=== PATIENT | female | born 1985 | race Caucasian/White ===

== ENCOUNTER → 2016-08-21 | Outpatient (CLI) | payer BC ==
[~2016-08-21] MED LIST: AMOX875T PO; B-COTAB18 PO; CHOL1000 PO; HYDR-5688 PO; MAGN400T6 PO; OMEG10007 PO; TURM1CAP4 PO; ZINC1TAB PO
== END | disposition home or self-care (01) ==
LOC: C.LAB1850 11:24
PROVIDERS: ATTEND Obstetrics & Gynecology
DX: N91.1 Secondary amenorrhea (principal)

== ENCOUNTER 2016-09-23 17:06 | Emergency (ER) | payer BC ==
[~2016-09-23] VITALS: Ht 175.3 cm; Wt 85.5 kg
[2016-09-23 17:16] VITALS: TEMP 36.7; Ht 175.3 cm; Wt 85.5 kg
[2016-09-23] MEDS ORDERED: RABIES IMMUNE GLOBULIN (HUMAN) 150 INTER.UNIT/ML 2 ML VIAL IM. ONE (17:30)
[2016-09-23] MEDS ORDERED: RABIES VACCINE (IMOVAX) HUMAN DIPL CELL 2.5 INTER.UNIT/ML SYR IM. ONE (17:30)
[2016-09-23 19:08] VITALS: BP 119/80; PULSE 78; O2SAT 99
--- NOTE | 2016-09-23 19:25 | EMERGENCY ROOM VISIT NOTE ---
History First contact with patient: 17:16 Chief Complaint: OTHER COMPLAINT Stated Complaint: BAT IN ROOM WHILE SLEEPING History of Present Illness The patient is a 31 year old female who presents to the Emergency Room for evaluation after the patient and spouse were awakened in the bedroom last night with their dog barking in the hallway leading to the bedroom. The bedroom door was open. They present to the emergency department for further discussion of need for the rabies prophylaxis series. Review of Systems 6 system review was performed and was negative except for pertinent positives and negatives as indicated in history of present illness Past Medical/Surgical History Medical Problems: (1) No significant past medical history (2) No significant past medical history Surgical Problems: (1) No history of previous surgery (2) No history of previous surgery Family History Unremarkable Social History Smoking Status: Never Smoker Alcohol Use: occasionally Marital Status: Housing Status: lives with family Occupation Status: employed Current/Historical Medications Scheduled Cholecalciferol (Vitamin D3), 1,000 UNITS PO DAILY Fish Oil ([place]-3), 1 CAP PO DAILY Physical Exam Vital Signs Date Time Temp Pulse Resp B/P (MAP) Pulse Ox O2 Delivery O2 Flow Rate FiO2 09/23/16 19:08 78 18 119/80 99 09/23/16 17:16 36.7 83 18 121/80 96 Room Air Physical Exam CONSTITUTIONAL: Healthy and well nourished. Alert and oriented X 3 with positive affect. HEENT: Normocephalic, atraumatic. Pupils equal, round and reactive. NECK: Full active range of motion without discomfort. INTEGUMENTARY: No rash or other significant dermatologic conditions noted. NEUROLOGIC: No focal neurologic deficits noted. Medical Decision & Procedures Medications Administered Medications (Trade) Dose Ordered Sig/Jigar Route Start Time Stop Time Status Last Admin Dose Admin Rabies Vaccine Human Diploid Cell (Imovax Rabies) 2.5 interunit ONCE ONCE IM. 09/23/16 17:30 09/23/16 17:31 DC 09/23/16 18:29 2.5 INTERUNIT Rabies Immune Globulin (Imogam Rabies Inj) 1,710 interunit ONCE ONCE IM. 09/23/16 17:30 09/23/16 17:31 DC 09/23/16 18:28 1,710 INTERUNIT ED Course Patient history and physical exam were performed. Nurse's notes were reviewed. Vital signs were reviewed and were normal. Because the patient was awakened with a possibility of a bat in their room, I did explain that CDC guidelines recommend the postexposure prophylaxis series. The patient was in agreement. The patient was administered Imovax and HRIG 20 units per kilogram without any adverse reactions. The patient will return on days 3, 7 and 14 for subsequent immunizations, sooner with any other adverse reactions or concerns. The patient was happy with plan of care, and denied any pain at the time of discharge. Medical Decision Medication Reconcilliation Current Medication List: was personally reviewed by me Blood Pressure Screening Patient's blood pressure: Normal blood pressure Impression Primary Impression: Need for prophylactic vaccination against rabies Departure Information Referrals No Doctor, Assigned (PCP) Patient Instructions My [facility]
[2016-11-16] MEDS ORDERED: HYDR-5688 PO (13:18)
[2016-11-16] MEDS ORDERED: AMOX875T PO (13:21)
== END 2016-09-23 19:10 | disposition home or self-care (01) ==
LOC: C.EDB 17:07 → C.EDD 19:10
DX: Z20.3 Contact with and (suspected) exposure to rabies (principal); Z23 Encounter for immunization

== ENCOUNTER 2016-09-26 19:27 | Emergency (ER) | payer BC ==
[~2016-09-26] VITALS: Ht 175.3 cm; Wt 83.1 kg
[2016-09-26 19:38] VITALS: TEMP 36.8; Ht 175.3 cm; Wt 83.1 kg
[2016-09-26] MEDS ORDERED: RABIES VACCINE (IMOVAX) HUMAN DIPL CELL 2.5 INTER.UNIT/ML SYR IM. ONE (19:45)
--- NOTE | 2016-09-26 19:47 | EMERGENCY ROOM VISIT NOTE ---
ED Visit Note First contact with patient: 19:39 CHIEF COMPLAINT: Need second rabies vaccine HISTORY OF PRESENT ILLNESS: This 31-year-old female presents the ER stating she needs her second rabies vaccine. The patient was seen in the ER initially 3 days ago when there was a bat in their house. The patient denies any known bites but was recommended that they obtain the rabies vaccine series. The patient did not have any problems with her prior vaccine. REVIEW OF SYSTEMS: 6 system review was performed and was negative unless stated otherwise in history of present illness. PMH: The patient is healthy; there is no significant medical or surgical history. SOCIAL HISTORY: Patient lives with her significant other PHYSICAL EXAM: Vital Signs: Were reviewed Reviewed Nurse's notes. GENERAL: 31- year-old white female appears in no acute distress. MENTAL Status: Alert and oriented 3. SKIN: No visible bites noted. EMERGENCY DEPARTMENT COURSE: The patient was evaluated. The patient was given Imovax. The patient was discharged home in stable condition. DISCHARGE INSTRUCTIONS: Return to the ER as previously directed for the remainder of the vaccine series. Current/Historical Medications Scheduled Cholecalciferol (Vitamin D3), 1,000 UNITS PO DAILY Fish Oil ([place]-3), 1 CAP PO DAILY Allergies Coded Allergies: Sulfa Antibiotics (Unverified Adverse Reaction, Intermediate, HIVES, ) Vital Signs Date Time Temp Pulse Resp B/P (MAP) Pulse Ox O2 Delivery O2 Flow Rate FiO2 09/26/16 19:38 36.8 72 16 123/77 96 Room Air Departure Information Referrals No Doctor, Assigned (PCP) Patient Instructions [facility]
[2016-09-26 20:12] VITALS: BP 105/87; PULSE 65; O2SAT 99
[2016-11-16] MEDS ORDERED: HYDR-5688 PO (13:18)
[2016-11-16] MEDS ORDERED: AMOX875T PO (13:21)
== END 2016-09-26 20:12 | disposition home or self-care (01) ==
LOC: C.EDB 19:28 → C.EDD 20:12
DX: Z23 Encounter for immunization (principal); Z20.3 Contact with and (suspected) exposure to rabies

== ENCOUNTER 2016-09-30 12:37 | Emergency (ER) | payer BC ==
[~2016-09-30] VITALS: Ht 175.3 cm; Wt 81.2 kg
[2016-09-30 16:17] VITALS: BP 111/79; PULSE 66; TEMP 36.7; O2SAT 98; Ht 175.3 cm; Wt 81.2 kg
[2016-09-30] MEDS ORDERED: RABIES VACCINE (IMOVAX) HUMAN DIPL CELL 2.5 INTER.UNIT/ML SYR IM. ONE (16:30)
--- NOTE | 2016-09-30 16:32 | EMERGENCY ROOM VISIT NOTE ---
ED Visit Note First contact with patient: 16:24 Chief complaint: Rabies exposure HPI: This 31-year-old white female presents for her next injection of Imovax. This is injection # 3. patient denies any rashes or problems from the last injection. No shortness of breath. Pain is 0/10. Initial exposure was a bat in her bedroom Review of systems: Unchanged from previous exam. Surgical history: Unchanged from previous exam. Medical history: Unchanged from previous exam Current medications: Unchanged from previous exam Allergies: Unchanged from previous exam Social history: Unchanged from previous exam Vitals: Afebrile. Reviewed and filed in patient's chart General: Well-developed, well-nourished, young white female, in no acute distress. She is sitting in a chair. Alert and oriented. Skin:Warm and dry with good turgor. No rashes or lesions. No ecchymosis or erythema. The patient is not diaphoretic. No abrasions. Musculoskeletal: Full motion of the shoulder without discomfort. Impression: Rabies exposure. Plan: Patient was educated regarding today's findings. They were given Imovax 1 ML IM. Patient was monitored for 20 minutes. No adverse changes were noted. Patient was discharged with instructions to follow-up at the next scheduled injection next Sunday. Tylenol as needed for any discomfort. Benadryl as needed for any itch. Return to the ER for any signs of allergic reaction. Current/Historical Medications Scheduled Cholecalciferol (Vitamin D3), 1,000 UNITS PO DAILY Fish Oil ([place]-3), 1 CAP PO DAILY Allergies Coded Allergies: Sulfa Antibiotics (Unverified Adverse Reaction, Intermediate, HIVES, ) Vital Signs Date Time Temp Pulse Resp B/P (MAP) Pulse Ox O2 Delivery O2 Flow Rate FiO2 09/30/16 16:17 36.7 66 18 111/79 98 Room Air Departure Information Impression Primary Impression: Need for prophylactic vaccination against rabies Dispostion Home / Self-Care Forms BENADRYL USE, WORK / SCHOOL INSTRUCTIONS, HOME CARE DOCUMENTATION FORM, MOTRIN USE, TYLENOL USE , IMPORTANT VISIT INFORMATION Patient Instructions My [facility] [address] [facility] Additional Instructions Tylenol and Motrin every 6 hours as needed for mild discomfort Benadryl every 6 hours as needed for mild redness/itching Return to the ED for any other concerns Follow-up in one week for your fourth and final Imovax administration
[2016-11-16] MEDS ORDERED: HYDR-5688 PO (13:18)
[2016-11-16] MEDS ORDERED: AMOX875T PO (13:21)
== END 2016-09-30 16:47 | disposition home or self-care (01) ==
LOC: C.EDB 12:40 → C.EDD 16:47
DX: Z20.3 Contact with and (suspected) exposure to rabies (principal); Z23 Encounter for immunization

== ENCOUNTER 2016-10-07 16:47 | Emergency (ER) | payer BC ==
[~2016-10-07] VITALS: Ht 175.3 cm; Wt 83.7 kg
[2016-10-07 16:48] VITALS: BP 117/78; PULSE 63; TEMP 36.7; O2SAT 97; Ht 175.3 cm; Wt 83.7 kg
[2016-10-07] MEDS ORDERED: RABIES VACCINE (IMOVAX) HUMAN DIPL CELL 2.5 INTER.UNIT/ML SYR IM. ONE (17:00)
--- NOTE | 2016-10-07 17:00 | EMERGENCY ROOM VISIT NOTE ---
ED Visit Note First contact with patient: 16:56 CHIEF COMPLAINT: Rabies prophylaxis HISTORY OF PRESENT ILLNESS: This 31-year-old female patient presents to the emergency department ambulatory for their fourth rabies shot. The patient has not had any complications from the previous injections. They deny any other complaints. REVIEW OF SYSTEMS: A 6 system review of systems was completed with positives and pertinent negatives listed in the HPI. ALLERGIES: Sulfa MEDICATIONS: Unchanged from previous PMH: Unchanged from previous visit. PHYSICAL EXAM: Vital Signs: Reviewed Nurse's notes, vital signs stable. GENERAL : The 31-year-old female, in no acute distress, well-developed, well-nourished. HEAD: Atraumatic, without temporal or scalp tenderness. EYES: PERRLA, EOMI, no discharge or injection. SKIN: Normal. NEUROLOGICAL: Alert and cooperative. Sensory and motor functions grossly intact. EMERGENCY DEPARTMENT COURSE: I examined the patient. The patient was given Imovax 1ml IM. The patient was observed for 20 minutes with no reaction. The patient was discharged home in stable condition. DIAGNOSIS: Rabies prophylaxis DISCHARGE INSTRUCTIONS: Continue vaccination schedule as directed. Return for any complications. Current/Historical Medications Scheduled B-Complex Vitamins (Vitamin B Complex), 1 TAB PO DAILY Cholecalciferol (Vitamin D3), 1,000 INTER.UNIT PO DAILY Fish Oil ([place]-3), 1 CAP PO DAILY Allergies Coded Allergies: Sulfa Antibiotics (Unverified Adverse Reaction, Intermediate, HIVES, ) Vital Signs Date Time Temp Pulse Resp B/P (MAP) Pulse Ox O2 Delivery O2 Flow Rate FiO2 10/07/16 16:48 36.7 63 16 117/78 97 Room Air Medications Administered Medications (Trade) Dose Ordered Sig/Jigar Route Start Time Stop Time Status Last Admin Dose Admin Rabies Vaccine Human Diploid Cell (Imovax Rabies) 2.5 interunit ONCE ONCE IM. 10/07/16 17:00 10/07/16 17:01 DC 10/07/16 17:19 2.5 INTERUNIT Departure Information Impression Primary Impression: Need for post exposure prophylaxis for rabies Dispostion Home / Self-Care Condition GOOD Referrals No Doctor, Assigned (PCP) Patient Instructions My [facility] Additional Instructions Return with any complications
[2016-11-16] MEDS ORDERED: HYDR-5688 PO (13:18)
[2016-11-16] MEDS ORDERED: AMOX875T PO (13:21)
== END 2016-10-07 17:37 | disposition home or self-care (01) ==
LOC: C.EDB 16:48 → C.EDD 17:37
DX: Z23 Encounter for immunization (principal); Z20.3 Contact with and (suspected) exposure to rabies

== ENCOUNTER 2016-11-04 14:15 | Emergency (ER) | payer BC ==
[~2016-11-04] VITALS: Ht 175.3 cm; Wt 83.7 kg
[2016-11-04 14:29] VITALS: TEMP 36.9; Ht 175.3 cm; Wt 83.7 kg
[2016-11-04] MEDS ORDERED: IBUPROFEN 600 MG TAB PO STA (14:58)
[2016-11-04] MEDS ORDERED: AMOXICILLIN/CLAVULANATE TAB 875 MG TAB PO ONE (15:00)
[2016-11-04] MEDS ORDERED: XYLOCAINE 1%/SOD BICARB 20 ML VIAL INFIL ONE (15:00)
[2016-11-04] MEDS ORDERED: TURM1CAP4 PO (15:37)
[2016-11-04] MEDS ORDERED: ZINC1TAB PO (15:37)
[2016-11-04] MEDS ORDERED: MAGN400T6 PO (15:37)
[2016-11-04 16:25] VITALS: BP 123/80; PULSE 71; O2SAT 98
[2016-11-04] MEDS ORDERED: AMOX875T PO (16:30)
--- NOTE | 2016-11-04 16:32 | EMERGENCY ROOM VISIT NOTE ---
History First contact with patient: 14:58 Chief Complaint: FALL Stated Complaint: FELL,SPLIT NOSE History of Present Illness The patient is a 31 year old female who presents to the Emergency Room with complaints of a laceration that she sustained to her nose when she tripped and fell over a garbage can. She did not lose consciousness. She complains of mild pain in her neck. No headache. Her tetanus shot is up-to-date. The bleeding has stopped. Review of Systems 6 system review negative. Please see pertinent positives in the history of present illness section. Past Medical/Surgical History Medical Problems: (1) No significant past medical history (2) No significant past medical history Surgical Problems: (1) No history of previous surgery (2) No history of previous surgery Social History Smoking Status: Never Smoker Alcohol Use: occasionally Marital Status: Housing Status: lives with family Occupation Status: employed Current/Historical Medications Scheduled Amoxicillin & Pot Clavulanate (Augmentin 875-125 mg), 1 TAB PO BID B-Complex Vitamins (Vitamin B Complex), 1 TAB PO DAILY Cholecalciferol (Vitamin D3), 1,000 INTER.UNIT PO DAILY Fish Oil ([place]-3), 1 CAP PO DAILY Magnesium Oxide (Mag-Ox), 400 MG PO DAILY Turmeric (Curcuma Longa) (Turmeric), 500 MG PO DAILY Zinc Gluconate (Zinc), 50 MG PO DAILY Physical Exam Vital Signs Date Time Temp Pulse Resp B/P (MAP) Pulse Ox O2 Delivery O2 Flow Rate FiO2 11/04/16 16:25 71 20 123/80 98 Room Air 11/04/16 14:29 36.9 86 16 108/73 97 Room Air Physical Exam VITALS: Vitals are noted on the nurse's note and reviewed by myself. Vital signs stable. GENERAL: 31-year-old female, in no acute distress, nondiaphoretic, well- developed well-nourished. HEAD: Normocephalic atraumatic. EYES: Pupils equal round and reactive to light and accommodation. Conjunctivae without injection, sclerae without icterus. Extraocular movements intact. NOSE: 1.5 cm laceration noted to the lateral aspect of the right nostril. It is not through and through. The edges gave the part with traction. There is mild bleeding. The nose itself is mildly deformed. Turbinates are inflamed, but without laceration. MOUTH: No lacerations in the oral mucosa NECK: Full range of motion of the neck. Cervical spine is nontender. MUSCULOSKELETAL: No muscle atrophy, erythema, or edema noted. . Strength 5/5 throughout. NEURO: Patient was alert and oriented to person place and time. Normal sensation to touch. No focal neurological deficits. Medical Decision & Procedures ER Provider Diagnostic Interpretation: Patient Name: JANET ART Unit Number: [id number] Dictated: 11/04/161618 Transcribed: 11/04/161618 PA Printed Date/Time: [~ rep prt dt]/[~ rep prt tm] [~ rep ct labl] - [~ rep ct ivnm] [facility] Radiology Department [place] [id number] Dictated: 11/04/161618 Transcribed: 11/04/161618 PAThinkglue Printed Date/Time: [~ rep prt dt]/[~ rep prt tm] [~ rep ct labl] - [~ rep ct ivnm] NASAL BONES MIN 3 VIEWS CLINICAL HISTORY: fell on face ? Nasal bone fx COMPARISON STUDY: None. FINDINGS: Tiny nondisplaced fracture within the distal tip of the nasal bones. This demonstrates minimal inferior angulation. The nasal septum and orbital floors are intact. Mild soft tissue swelling. IMPRESSION: Tiny nondisplaced fracture within the distal tip of the nasal bones. Electronically signed by: Troy Langston M.D. 11/04/2016 4:57 PM Dictated Date/Time: 11/04/2016 4:19 PM The status of this report is Signed. Draft = Not yet reviewed or approved by Radiologist. Signed = Reviewed and approved by Radiologist. <AttendingPhy></AttendingPhy> <FamilyPhy>No Doctor, Assigned</FamilyPhy> < PrimaryPhy>No Doctor, Assigned</PrimaryPhy> <UnitNumber>[id number]</UnitNumber> <VisitNumber>[id number]</VisitNumber> <PatientName>JANET ART</PatientName > <DateOfBirth>1985</DateOfBirth> <Location>[facility]</Location> <ServiceDate> 11/04/16</ServiceDate> <MNE>ESINDI</MNE> <OrderingPhy>AbhijitKaylin Jimmie LOPEZ</ OrderingPhy> <OrderingPhyMNE>f rep ord dr finney</OrderingPhyMNE> <DictatingPhyMNE> f rep dict dr finney</DictatingPhyMNE> <CCListMNE>f rep ct mne</CCListMNE> < AdmittingPhyMNE>f pt admit dr finney</AdmittingPhyMNE> <AttendingPhyMNE>f pt attend dr finney</AttendingPhyMNE> <ConsultingPhyMNE>f pt consult dr finney</ConsultingPhyMNE> <FamilyPhyMNE>f pt fam dr finney</FamilyPhyMNE> <OtherPhyMNE>f pt other dr finney</OtherPhyMNE> < PrimaryPhyMNE>f pt prim care dr finney</PrimaryPhyMNE> <ReferringPhyMNE>f pt referring dr finney</ReferringPhyMNE> Medications Administered Medications (Trade) Dose Ordered Sig/Jigar Route Start Time Stop Time Status Last Admin Dose Admin Ibuprofen (Motrin Tab) 600 mg ONE STAT PO 11/04/16 14:58 11/04/16 15:00 DC 11/04/16 15:13 600 MG Amoxicillin/ Clavulanate Potassium (Augmentin Tab) 875 mg NOW ONCE PO 11/04/16 15:00 11/04/16 15:02 DC 11/04/16 15:14 875 MG Procedure Verbal consent was obtained to perform the procedure. Using sterile technique the wound was cleaned with Betadine. The area was sterilely draped. 3 ml of 1 % buffered lidocaine was used to anesthetize the laceration on the nose. Once the patient was anesthetized, the wound was copiously irrigated under pressure with sterile saline. The wound was explored and there were no deep structures injured such as bone, or significant blood vessels. The laceration was repaired using 6 simple interrupted 6-0 nylon sutures with the wound edges being well approximated. The patient tolerated the procedure well. Hemostasis was achieved. The area was cleaned with sterile saline and dressed with bacitracin ointment and bandage. ED Course The patient was seen and examined She was given ibuprofen 600 mg by mouth and one dose of Augmentin The laceration was repaired. Please see my procedure note Imaging was performed and reviewed The findings were discussed with the patient. She voiced understanding. Discharge instruction's were discussed, and she was discharged in good condition Medical Decision Differential diagnosis: Nasal bone fracture, laceration, wound infection, open fracture This patient is a 31-year-old female that presents emergency department with a laceration to the lateral aspect of her right nostril after sustaining a fall. The fall was mechanical. No loss of consciousness. She was complaining of mild neck pain, however she had full range of motion with no tenderness over her neck. I did not find imaging necessary of her neck. She did have slight deformity and swelling over the nose. Imaging was performed. It appears that she has a nasal bone fracture. The laceration itself was repaired. She was given a referral to an ENT doctor for the fracture. She was put on a prophylactic course of Augmentin to prevent infection. She will follow up with the plastic surgeon if desired for revision of a scar if necessary. This chart was completed in part utilizing [employer] Speech Voice Recognition software. Attempts were made to minimize the grammatical errors, random word insertions, pronoun errors and incomplete sentences. Any formal questions or concerns about the content, text or information contained within the body of this dictation should be directly addressed to the provider for clarification. Blood Pressure Screening Patient's blood pressure: Normal blood pressure Impression Primary Impression: Laceration Additional Impression: Nasal bone fracture Departure Information Dispostion Home / Self-Care Condition GOOD Prescriptions Amoxicillin & Pot Clavulanate (Augmentin 875-125 mg) 1 Tab Tab 1 TAB PO BID for 5 Days, #10 TAB Prov: Kaylin Lacey PA-C 11/04/16 Referrals No Doctor, Assigned (PCP) Alissa Fletcher M.D. Peterson, Emily A., MD Forms HOME CARE DOCUMENTATION FORM, IMPORTANT VISIT INFORMATION Patient Instructions ED Laceration Nose W Fx Ch, My [facility] Additional Instructions Keep wound clean. It is okay to gently wash the area with soapy water. Do not submerse it in water for long periods of time such as swimming, going in hot tubs or taking baths until the sutures come out. Do not allow any crusting or dried blood to accumulate on sutures. If this occurs, use a 1:1 solution of hydrogen peroxide/water on a Q-tip to clean the wound. Use an antibiotic ointment for 2 days, then let wound dry. Suture removal in 6 days. Return sooner for any signs of infection (increasing redness, swelling, drainage). Please follow-up with Dr. Fletcher, the ENT doctor, for the nasal bone fracture. Please call Sunday for a follow-up appointment If desired, you may also follow up with a plastic surgeon. Ice for swelling and pain. Ibuprofen 600 mg and Tylenol 1000 mg every 6 hrs for pain. Problem Qualifiers
[2016-11-04] MEDS ORDERED: B-COTAB18 PO (16:45)
--- NOTE | 2016-11-04 16:58 | DIAGNOSTIC IMAGING REPORT ---
NASAL BONES MIN 3 VIEWS CLINICAL HISTORY: fell on face ? Nasal bone fx COMPARISON STUDY: None. FINDINGS: Tiny nondisplaced fracture within the distal tip of the nasal bones. This demonstrates minimal inferior angulation. The nasal septum and orbital floors are intact. Mild soft tissue swelling. IMPRESSION: Tiny nondisplaced fracture within the distal tip of the nasal bones. Electronically signed by: Troy Langston M.D. 11/04/2016 4:57 PM Dictated Date/Time: 11/04/2016 4:19 PM
[2016-11-04] MEDS ORDERED: CHOL1000 PO (17:31)
[2016-11-04] MEDS ORDERED: OMEG10007 PO (17:31)
[2016-11-16] MEDS ORDERED: HYDR-5688 PO (13:18)
[2016-11-16] MEDS ORDERED: AMOX875T PO (13:21)
== END 2016-11-04 16:50 | disposition home or self-care (01) ==
LOC: C.EDB 14:15 → C.EDC 16:50
DX: S01.21XA Laceration without foreign body of nose, initial encounter (principal); S02.2XXA Fracture of nasal bones, initial encounter for closed fracture; W01.0XXA Fall on same level from slipping, tripping and stumbling without subsequent striking against object, initial encounter; Z79.899 Other long term (current) drug therapy

== ENCOUNTER → 2016-11-16 | Day surgery (SDC) | payer BC ==
--- NOTE | 2016-11-15 12:17 | History and Physical: Surg Cnt ---
History & Physical Date Nov 15, 2016. Chief Complaint nasal obstruction History of Present Illness The patient is a 31 year old female with complaints of nasal and septal fracture last week, obstructed right side > left, xray showed nasal fracture Past Medical/Surgical History Medical Problems: (1) No significant past medical history (2) No significant past medical history Surgical Problems: (1) No history of previous surgery (2) No history of previous surgery Additional History Hepatic Disease: No Endocrine Disorder: No Kidney Disease: No Hypertension: No Heart Disease: No Bleeding Tendencies: No Infectious Diseases: No Allergies Coded Allergies: Sulfa Antibiotics (Unverified Adverse Reaction, Intermediate, HIVES, ) Home Medications Scheduled B-Complex Vitamins (Vitamin B Complex), 1 TAB PO DAILY Cholecalciferol (Vitamin D3), 1,000 INTER.UNIT PO DAILY Fish Oil ([place]-3), 1 CAP PO DAILY Magnesium Oxide (Mag-Ox), 400 MG PO DAILY Turmeric (Curcuma Longa) (Turmeric), 500 MG PO DAILY Zinc Gluconate (Zinc), 50 MG PO DAILY Physical Examination Skin: warm/dry, no rash Eyes: normal inspection, EOMI, sclerae normal ENT: normal ENT inspection, pharynx normal Head: normocephalic, atraumatic Neck: supple, no adenopathy, trachea midline Respiratory/Chest: lungs clear, normal breath sounds, no respiratory distress Cardiovascular: regular rate, rhythm, no edema, no murmur Abdomen / GI: normal bowel sounds, non tender Back: normal inspection Extremities: normal inspection, normal range of motion Neurologic/Psych: no motor/sensory deficits, alert, normal reflexes, oriented x 3 Diagnosis nasal and septal fracture Plan of Treatment septoplasty, closed reduction nose
[2016-11-15 13:26] VITALS: Ht 175.3 cm; Wt 79.5 kg
[~2016-11-16] VITALS: Ht 175.3 cm; Wt 79.5 kg
[~2016-11-16] MED LIST changes: +ATROPINE SULFATE 0.1 MG/ML 5ML SYR IV PRN; +BACITRACIN OINT 15 GM TUBE ONE; +CEFAZOLIN 1000MG/55 ML D5W IV SCH; +DEXAMETHASONE SOD INJ 4 MG/ML VIAL ONE; +EpINEphrine HCL INJ 1 MG/ML 5ML SYRINGE ONE; +FENTANYL CITRATE INJ 50 MCG/1 ML 2 ML VIAL IV PRN; +FENTANYL CITRATE INJ 50 MCG/1 ML 2 ML VIAL ONE; +GELATIN SPONGE 12-7MM ONE; +KETOROLAC TROMETHAMINE 30 MG/ML VIAL IV. PRN; +LABETALOL HCL IV 5 MG/ML 20ML IV PRN; +LACTATED RINGER'S 1000ML 1,000 ML IV SCH; +LIDO 2%/EPINEPHRINE 1:100000 20 ML VIAL INFIL ONE; +LIDOCAINE 4% MPF SOAK 5 ML = 1 DOSE TOP ONE; +LIDOCAINE HCL 2% 2 ML VIAL (20MG/ML) ONE; +MIDAZOLAM HCL 1 MG/ML 2ML VIAL ONE; +ONDANSETRON INJ 2 MG/ML 2 ML VIAL IV PRN; +ONDANSETRON INJ 2 MG/ML 2 ML VIAL ONE; +OXYCODONE/ACETAMINOPHEN 5-325 TAB PO PRN; +PROMETHAZINE HCL INJ 12.5 MG in SODIUM CHLORIDE 0.9% 50ML 50 ML IV PRN; +PROPOFOL IV EMULSION 10 MG/ML 20 ML VIAL IV ONE; +SODIUM CHLORIDE 0.9% 1000ML 1,000 ML IV SCH
--- NOTE | 2016-11-16 12:13 | History & Physical Bridge Note ---
H&P Re-Evaluation Bridge Note: I have examined the patient, reviewed the History & Physical and in the interval since the performance of the History & Physical I have noted the following changes of clinical significance: No changes noted
--- NOTE | 2016-11-16 13:19 | Discharge Instructions-SurgCtr ---
Discharge Instructions Date of Service Nov 16, 2016. Visit Reason for Visit: Nasal & Septal Fracture Discharge Discharge Diagnosis / Problem: same plus septal hematoma Discharge Goals Goal(s): Improve function Activity Recommendations Activity Limitations: resume your previous activity Anesthesia . Post Anesthesia Instructions: If you have had General Anesthesia or IV Sedation: * Do not drive today. * Resume driving when surgeon permits. * Do not make important decisions or sign legal documents today. * Call surgeon for: 1. Temperature elevations greater than 101 degrees F. 2. Uncontrollable pain. 3. Excessive bleeding. 4. Persistent nausea and vomiting. 5. Medication intolerance (nausea, vomiting or rash). * For nausea and vomiting use only clear liquids such as: tea, soda, bouillon until nausea subsides, then gradually increase diet as tolerated. * If you have any concerns or questions, call your surgeon's office. If physician is unavailable and it is an emergency, call 911 or go to the nearest emergency room. . Instructions / Follow-Up Instructions / Follow-Up ACTIVITY RECOMMENDATIONS: * Being up and around is good, but no strenuous activity, heavy lifting or physical exertion for one week. * Keep your head elevated 30 degrees when lying down or sleeping. * Do not blow your nose for 48 hours, sniff back instead. * Avoid hot showers. OVER THE COUNTER MEDICATIONS: * You may use Tylenol * Avoid aspirin or aspirin containing products, e.g. as they may increase bleeding. SPECIAL CARE INSTRUCTIONS: * Expect to have bloody drainage from your nose and/or down your throat for one to three days. Change drip pad as needed. * Begin irrigating your nose with saline solution today, at least six to ten times per day and sniff back to help remove old clots or crust. * You may experience nasal and facial congestion, pain and pressure, this is normal. * Please call with any significant and/or progressive pain, redness, swelling around the eyes, visual changes, fever of 101.5 degrees F, active bleeding or any problems or concerns. * If active bleeding occurs, spray the nose three times at one minute intervals with Afrin spray and call or cell phone: . If unable to reach the doctor, go to the nearest Emergency Department. Special Diet: * Avoid extremely hot fluids. FOLLOW UP VISIT: Follow-up Visit with Dr. Fletcher If not already scheduled, please call to schedule. Diet Recommendations Home Diet: no limitations Procedures Procedures Performed: Closed Reduction Nasal Fracture, Septoplasty Pending Studies Studies pending at discharge: no Medical Emergencies . Who to Call and When: Medical Emergencies: If at any time you feel your situation is an emergency, please call 911 immediately. . Non-Emergent Contact Non-Emergency issues call your: Primary Care Provider . . "Provider Documentation" section prepared by Alissa Fletcher. . [place] Drug Monitoring Program Search Results: no issues identified
--- NOTE | 2016-11-16 13:25 | [facility] Operative Report ---
Operative Report Operative Date Nov 16, 2016. Pre-Operative Diagnosis Septal Deviation, Nasal Fracture Post-Operative Diagnosis same Procedure(s) Performed Closed Reduction Nasal Fracture, Septoplasty Surgeon Dr. Hansa Fletcher Photography Editor Surgeon(s) 0 Estimated Blood Loss 20cc Findings Septal hematoma Specimens none Anesthesia Gen. Complication(s) None Disposition Recovery Room / PACU Indications 31-year-old lady who tripped and fell on her nose with obstruction and deformity found to have septal hematoma at surgery Description of Procedure She was brought to the operating room and placed in the supine position. Gen. anesthesia was induced using LMA. Nose was decongested using cottonoids with a solution of 4 mL of 4% Xylocaine mixed with 1 mL of epinephrine. Injection of 2 % Xylocaine 1-100,000 strength epinephrine was also used. The right nasal bone was pushed back to the midline in the left nasal bone was elevated into position with the [place] elevator. The left hemitransfixion incision was made and mucoperichondrium was elevated off the left side of the septum a septal hematoma was encountered and evacuated. The cartilage was fractured and dislocated from the vomer maxillary crest inferiorly and the perpendicular plate of the ethmoid posteriorly. Bilateral posterior tunnels were made to isolate the deviated portion the perpendicular plate of the ethmoid which was removed using the Hai-Theresa rongeurs. The cartilage was inferiorly from the vomer maxillary crest removing a small pieces to allow the septum to reset on the crest. The septum was still bulging on the right side for the mucoperichondrium was elevated off the right side where another septal hematoma was encountered and evacuated. The septum was closed using a continuous mattress suture for 40 plain gut. Anterior packing of Gelfoam was placed. A Grygla splint was placed on the dorsum of the nose. She tolerated the procedure well was taken to recovery area in satisfactory condition. I attest to the content of the Intraoperative Record and any orders documented therein. Any exceptions are noted below.
[2016-11-16 13:52] VITALS: TEMP 36.8
[2016-11-16 14:08] VITALS: BP 112/73; PULSE 68; O2SAT 98
--- NOTE | 2016-11-16 14:11 | Anesthesia Progress Nt - [facility] ---
Anesthesia Post Op Note Date & Time Nov 16, 2016 at 14:11 Vital Signs Pain Intensity: 0 Vital Signs Past 12 Hours Date Time Temp Pulse Resp B/P (MAP) Pulse Ox O2 Delivery O2 Flow Rate FiO2 11/16/16 14:08 68 16 112/73 (86) 98 Room Air 11/16/16 13:52 36.8 61 18 106/71 (83) 97 Room Air 11/16/16 13:31 36.6 11/16/16 13:28 72 20 97 11/16/16 13:28 73 20 11/16/16 13:26 101/67 (77) 11/16/16 13:23 61 12 11/16/16 13:23 60 12 98 11/16/16 13:21 107/65 (72) 11/16/16 13:18 69 23 98 11/16/16 13:18 70 23 11/16/16 13:15 101/69 (80) 11/16/16 13:12 36.7 62 16 101/69 99 Diffusion Mask 5 11/16/16 10:07 36.7 76 22 106/76 (86) 100 Room Air Notes Mental Status: alert / awake / arousable, participated in evaluation Pt Amnestic to Procedure: Yes Nausea / Vomiting: adequately controlled Pain: adequately controlled Airway Patency, RR, SpO2: stable & adequate BP & HR: stable & adequate Hydration State: stable & adequate Anesthetic Complications: no major complications apparent
== END | disposition home or self-care (01) ==
LOC: X.SURG 09:31
PROVIDERS: ATTEND Otolaryngology
DX: S02.2XXA Fracture of nasal bones, initial encounter for closed fracture (principal); J34.2 Deviated nasal septum; X58.XXXA Exposure to other specified factors, initial encounter

== ENCOUNTER → 2017-01-19 | Outpatient (CLI) | payer BC ==
[~2017-01-19] MED LIST changes: -AMOX875T PO; -ATROPINE SULFATE 0.1 MG/ML 5ML SYR IV PRN; -BACITRACIN OINT 15 GM TUBE ONE; -CEFAZOLIN 1000MG/55 ML D5W IV SCH; -DEXAMETHASONE SOD INJ 4 MG/ML VIAL ONE; -EpINEphrine HCL INJ 1 MG/ML 5ML SYRINGE ONE; -FENTANYL CITRATE INJ 50 MCG/1 ML 2 ML VIAL IV PRN; -FENTANYL CITRATE INJ 50 MCG/1 ML 2 ML VIAL ONE; -GELATIN SPONGE 12-7MM ONE; -KETOROLAC TROMETHAMINE 30 MG/ML VIAL IV. PRN; -LABETALOL HCL IV 5 MG/ML 20ML IV PRN; -LACTATED RINGER'S 1000ML 1,000 ML IV SCH; -LIDO 2%/EPINEPHRINE 1:100000 20 ML VIAL INFIL ONE; -LIDOCAINE 4% MPF SOAK 5 ML = 1 DOSE TOP ONE; -LIDOCAINE HCL 2% 2 ML VIAL (20MG/ML) ONE; -MIDAZOLAM HCL 1 MG/ML 2ML VIAL ONE; -ONDANSETRON INJ 2 MG/ML 2 ML VIAL IV PRN; -ONDANSETRON INJ 2 MG/ML 2 ML VIAL ONE; -OXYCODONE/ACETAMINOPHEN 5-325 TAB PO PRN; -PROMETHAZINE HCL INJ 12.5 MG in SODIUM CHLORIDE 0.9% 50ML 50 ML IV PRN; -PROPOFOL IV EMULSION 10 MG/ML 20 ML VIAL IV ONE; -SODIUM CHLORIDE 0.9% 1000ML 1,000 ML IV SCH
== END | disposition home or self-care (01) ==
LOC: C.PAPS 11:53
PROVIDERS: ATTEND Obstetrics & Gynecology
DX: Z01.419 Encounter for gynecological examination (general) (routine) without abnormal findings (principal)

== ENCOUNTER 2019-06-17 07:24 | Inpatient (IN) ==
[2019-06-17] MEDS ORDERED: OXYTOCIN 30 UNITS/500 ML BAG IV PRN ×3 (08:10→20:47)
--- NOTE | 2019-06-17 08:15 | History & Physical Report ---
Date of Service June 17, 2019 Assessment & Plan (1) Supervision of normal intrauterine in primigravida: (2) Active labor at term: (3) Need for rubella vaccination: admit, iv, labs. mmr pp. discussed her plan and that are some things we cannot honor. fhts categ 1 History of Present Illness Chief Complaint: leaking fluid since 0630 today and stronger ctx. Primary Care Provider: Mikey Bautista MD 34yo at 40+wks shawn presents to L&D with above cc. She was here overnight and sent home after no active labor and was 2cm. She recalle with rom clear fluid at 0630 and stronger ctx and advised to return. Some bleeding on and off since exams. +FM. Wants to hypnobirth, had a plan that I did not see until overnight and aware we can not honor some of her wishes. PNC c/b 1. need for mmr pp 2. h/o LLP, resolved at 32wk us PNL rh pos, r equiv, gbs neg OBH: g1 GYNH: nl paps, no stds. All Active Problems (Updated 06/17/19 @ 08:14 by Lexii Ring MD, FACOG) Active labor at term Need for rubella vaccination Supervision of normal intrauterine in primigravida Allergies Allergy/AdvReac Type Severity Reaction Status Date / Time amoxicillin [From Augmentin] Allergy Hives Verified 06/12/19 08:07 ciprofloxacin [From Cipro] Allergy hives Verified 06/12/19 08:07 clavulanic acid Allergy Hives Verified 06/12/19 08:07 [From Augmentin] Sulfa (Sulfonamide AdvReac Intermediate HIVES Verified 06/12/19 08:07 Antibiotics) Home Medications Home Medications Medication Instructions Recorded Confirmed Type breast pump #1 ea 05/20/19 06/17/19 Rx ferrous sulfate 325 mg PO DAILY 06/17/19 06/17/19 History vit no.[id number] 1 tab PO DAILY 06/17/19 06/17/19 History [ Vitamin] Patient History Medical History (Updated 06/17/19 @ 08:14 by Lexii Ring MD, FACOG) Hypertrophy of nasal turbinates (Inactive) Nasal bone fracture (Resolved) Varicella vaccine Yeast infection Surgical History (Updated 04/04/19 @ 18:34 by Lexii Ring MD, FACOG) S/P ACL repair S/P nasal septoplasty S/P tooth extraction Social History (Updated 11/08/18 @ 13:59 by Krystina Olson) Preferred Language: Vietnamese Communication Ability: Effective Visual Impairment: No Limitations Hearing Ability: Normal Assembling Inspector Required: No Beliefs That Will Affect Care: None marital status: marital status details: Izaiah Causey (33) [phone] Current Living Situation: Spouse Current Living Situation Comment: nuha current occupational status: employed 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 [employer] Other Information That Helps Us Care for You: No Feels Safe at Home: Yes Safety Concerns: Feels Safe At This Time Smoking Status: Never smoker Second Hand Exposure: No ; Hx Alcohol Use: No Hx Substance Use: No Dental Care, Regularly: Yes Physical Activity Frequency: 3-4 Times per Week Review of Systems no fever no change in stools no dysuria and no abnormal vaginal bleeding Physical Exam Constitutional: WD/WN, vitals as above Respiratory: normal respiratory effort, lungs clear to auscultation Cardiovascular: Rate/Rhythm: regular rate and regular rhythm Gastrointestinal (Abdomen): Percussion/Palpation: abdomen soft (gravid); abdomen nontender Musculoskeletal: no edema Neurologic: grossly normal Psychiatric: A+Ox3, euthymic affect Genitourinary: Manual OB Exam: + cervical dilation 5 cm, + cervical effacement 100%, + station -2 and + amniotic fluid (SSE, no pool, ) clear, nitrazine positive and ferning present OB Exam Monitor Tracing: + external FHT monitor used (140 mod variability), + external uterine monitor used (q3), + category I and + normal FHT variability Results & Data Vital Signs (Past 12 Hours) Vital Signs Temp Resp 06/17/19 07:42 98.2 F 20 Coding Level of Care Code None Diagnoses Supervision of normal intrauterine in primigravida Z34.00 Active labor at term Need for rubella vaccination Z23
[2019-06-17 08:30] LABS: Hematocrit (blood only) 34.9 % (37-47); Mean Corpuscular Hemoglobin 29.5 pg (25-34); Mean Corpuscular Volume 85.7 fL (80-100); Platelet Count 172 K/uL (130-400); RDW Coefficient of Variation 13.9 % (11.5-14.5); RDW Standard Deviation 43.1 fL (36.4-46.3); Red Blood Count 4.07 M/uL (4.2-5.4); White Blood Count 26.32 K/uL (4.8-10.8)
[2019-06-17 08:51] LABS: Mean Corpuscular Hgb Conc 34.4 g/dL (32-36)
[2019-06-17] MEDS: LACTATED RINGER'S 1,000 ML IV PRN ×3 (09:04→17:50)
[2019-06-17] MEDS ORDERED: ePHEDrine sulfate 50 MG/ML AMP ONE (09:09)
[2019-06-17] MEDS ORDERED: fentaNYL 2MCG/ML ROPIV 1.25MG/ML 100 ML BAG EPI ONE ×2 (09:09→17:41)
[2019-06-17] MEDS ORDERED: BUPIVACAINE 0.25% 30 ML VIAL ONE (09:09)
[2019-06-17] MEDS ORDERED: fentaNYL citrate 100 MCG/2 ML VIAL ONE (09:09)
--- NOTE | 2019-06-17 09:14 | Anesthesiology Consultation ---
Date of Service June 17, 2019 Assessment & Plan Chart Review Chart Review: Acceptable Risk for Labor Epidural Consults Requested none ASA ASA2 Proposed Anesthesia Anesthesia Type: Labor Epidural Risk / Benefits Reviewed With: PT / POA / Parent / Guardian, Accepts Plan and Informed Consent Obtained History Height/Weight Height: 5 ft 9 in Weight: 104.326 kg Allergies Allergy/AdvReac Type Severity Reaction Status Date / Time amoxicillin [From Augmentin] Allergy Hives Verified 06/12/19 08:07 ciprofloxacin [From Cipro] Allergy hives Verified 06/12/19 08:07 clavulanic acid Allergy Hives Verified 06/12/19 08:07 [From Augmentin] Sulfa (Sulfonamide AdvReac Intermediate HIVES Verified 06/12/19 08:07 Antibiotics) Medications Home Medications Medication Instructions Recorded Confirmed Last Taken breast pump #1 ea 05/20/19 06/17/19 Unknown ferrous sulfate 325 mg PO DAILY 06/17/19 06/17/19 Unknown vit no.[id number] 1 tab PO DAILY 06/17/19 06/17/19 06/16/19 08:00 [ Vitamin] Active Medications Generic Name Dose Route Start Last Admin Trade Name Freq PRN Reason Stop Dose Admin Lactated Ringer's 1,000 mls @ 125 mls/hr 06/17/19 08:10 06/17/19 09:04 Lr IV 06/19/19 08:09 999 mls/hr .Q8H PRN Administration L&D Protocol Protocol NPO Date Last Intake of Fluids: 06/17/19 Time Last Intake of Fluids: 08:00 Date Last Intake of Solids: 06/16/19 Time Last Intake of Solids: 20:00 Past Medical History Medical History Hypertrophy of nasal turbinates (Inactive) Nasal bone fracture (Resolved) Varicella vaccine Yeast infection Exercise / Class Metabolic Activity II 4-5 Yardwork/Stairs/Walk up hill Past Family History Family History Brother Testicular cancer Family/Other Ovarian cancer Grandmother No problems noted. Uncle Myocardial infarction Hypertension Hypercholesteremia Grandfather (Paternal) Hypertension Father Hypercholesteremia Mother Fibroid Denies family history of Prostate cancer Breast cancer Colorectal cancer Past Surgical History Surgical History S/P ACL repair S/P nasal septoplasty S/P tooth extraction Past Anesthesia History No Hx of Anesthesia Complications and No Family Hx of Anesthesia Complications History of PONV No Hx of PONV and No Hx of Motion Sickness Social History Smoking Status: Never smoker Hx Alcohol Use: No Hx Substance Use: No substance use type: does not use Physical Exam Vital Signs Last Vital Signs Temp 36.8 C 06/17/19 07:42 Resp 20 06/17/19 07:42 ENMT Mouth: + small oral opening; no TMJ abnormality Thyromental Distance: > or= 3.5 Finger Breadths Mallampati Class: III Neck normal visual inspection and trachea midline; neck extension not limited Respiratory normal respiratory effort Auscultation: lungs clear to auscultation bilaterally Cardiovascular Rate/Rhythm: regular rate and regular rhythm Heart Sounds: no murmur Musculoskeletal Spine: normal cervical ROM Extremities: full ROM of extremities Neurologic moves all extremities Psychiatric Orientation: alert and oriented x 3 Testing Laboratory Results 06/17/19 08:15
[2019-06-17] MEDS ORDERED: ONDANSETRON INJ 2 MG/ML 2 ML VIAL IV PRN (09:16)
[2019-06-17] MEDS ORDERED: ePHEDrine sulfate 50 MG/ML AMP IV PRN (09:16)
[2019-06-17] MEDS ORDERED: NALOXONE HCL 1 MG in SODIUM CHLORIDE 0.9% 1000ML 1,000 ML IV PRN (09:16)
[2019-06-17] MEDS ORDERED: DiphenhydrAMINE HCL 50 MG/ML VIAL IV PRN (09:16)
[2019-06-17] MEDS ORDERED: METOCLOPRAMIDE HCL 20 MG in SODIUM CHLORIDE 0.9% 50 ML IV PRN (09:16)
[2019-06-17] MEDS ORDERED: NALBUPHINE HCL INJ 10 MG/ML AMP IV PRN (09:16)
[2019-06-17] MEDS ORDERED: fentaNYL 2MCG/ML ROPIV 1.25MG/ML 100 ML BAG EPI PRN (09:16)
[2019-06-17] MEDS ORDERED: PROMETHAZINE HCL 25 MG in SODIUM CHLORIDE 0.9% 50 ML IV PRN (09:16)
[2019-06-17] MEDS ORDERED: NALOXONE HCL 0.4 MG/1 ML VIAL/CARP IV PRN (09:16)
--- NOTE | 2019-06-17 11:39 | Labor Progress Brief Note ---
Date of Service June 17, 2019 Cx now 7-8 100%. Epidural cat 1 Results & Data Vital Signs (Past 12 Hours) Vital Signs Temp Pulse Resp BP Pulse Ox 06/17/19 11:34 71 96 06/17/19 11:29 76 97 06/17/19 11:24 70 97 06/17/19 11:22 68 110/67 06/17/19 11:19 71 96 06/17/19 11:14 71 95 06/17/19 11:09 73 94 06/17/19 11:05 73 112/61 06/17/19 11:04 81 97 06/17/19 11:00 68 105/58 L 06/17/19 10:59 80 97 06/17/19 10:55 71 102/56 L 06/17/19 10:54 71 96 06/17/19 10:50 73 104/58 L 06/17/19 10:49 68 95 06/17/19 10:45 72 105/58 L 06/17/19 10:44 71 96 06/17/19 10:41 72 92 06/17/19 10:40 68 105/56 L 05 10:39 72 95 06/17/19 10:36 71 105/57 L 05 10:34 69 95 05 10:31 70 103/57 L 05 10:29 72 95 05 10:25 71 104/57 L 05 10:24 73 95 0520 10:20 71 103/58 L 05 10:19 75 95 05 10:16 20 06/17/19 10:15 66 103/56 L 0520 10:14 73 96 05 10:10 72 100/56 L 0520 10:09 72 96 05 10:07 69 103/55 L 05 10:04 71 95 05 10:01 20 06/17/19 10:00 70 101/55 L 0520 09:59 72 96 0520 09:56 70 101/56 L 0520 09:54 72 96 05 09:51 71 104/56 L 94 06/17/19 09:49 70 96 06/17/19 09:45 98.2 F 76 20 107/56 L 06/17/19 09:44 73 97 06/17/19 09:39 78 110/61 98 06/17/19 09:37 83 112/60 06/17/19 09:35 77 114/61 06/17/19 09:34 75 128/60 93 06/17/19 09:31 79 130/76 06/17/19 09:29 94 H 135/74 97 06/17/19 09:24 98 H 133/73 100 06/17/19 07:42 98.2 F 20 Coding Level of Care Code None
[2019-06-17] MEDS ORDERED: LACTATED RINGER'S 1,000 ML IV SCH (15:45)
--- NOTE | 2019-06-17 15:47 | Labor Progress Brief Note ---
Date of Service June 17, 2019 CX have speaced at full dilatation. Start pitocin 7-8 lbs Results & Data Vital Signs (Past 12 Hours) Vital Signs Temp Pulse Resp BP Pulse Ox 06/17/19 15:44 82 100 05/0520 15:39 85 100 05/0520 15:37 80 107/65 05/0520 15:34 79 100 05/0520 15:29 101 H 94 05/0520 15:24 74 100 05/0520 15:22 86 110/63 05/0520 15:19 103 H 95 0505 15:14 81 100 05/05 15:09 95 H 100 05/05 15:07 73 111/64 05/05 15:04 74 100 05/05 14:59 78 100 05/0520 14:54 78 100 0505 14:52 76 108/60 05/0520 14:49 85 100 05/0520 14:44 83 100 05/0520 14:39 74 100 05/0520 14:37 65 110/63 05/0520 14:34 70 100 05/0520 14:29 79 100 05/05/20 14:24 72 105/65 100 05/05/20 14:19 71 100 05/0520 14:16 20 0505 14:14 69 100 05/05/20 14:09 74 109/61 100 05/05/20 14:04 78 100 05/05/20 13:59 85 100 05/05/20 13:54 74 100 05/0520 13:52 73 101/58 L 0505 13:49 78 100 05/0520 13:44 81 99 05/05/20 13:39 80 100 05/05/20 13:37 90 92/53 L 05/05/20 13:34 81 99 05/05/20 13:29 78 99 05/05/20 13:24 82 100 05/0520 13:22 74 97/52 L 05/05/20 13:19 73 100 05/05/20 13:16 20 05/0520 13:14 74 100 05/0520 13:09 73 94/53 L 100 05/05 13:04 73 100 05/05/20 13:01 20 05/05/20 12:59 80 91/54 L 100 05/05/20 12:54 78 98 05/05/20 12:53 68 84/50 L 05/05/20 12:49 73 98 05/05/20 12:46 20 05/05/20 12:44 71 97 05/05/20 12:39 74 99 05/05/20 12:38 71 89/52 L 05/05/20 12:34 71 99 05/05/20 12:29 89 99 05/05/20 12:24 69 97 05/05/20 12:23 64 106/64 05/05/20 12:19 67 97 05/05/20 12:16 20 05/05/20 12:14 81 98 05/05/20 12:09 72 111/65 96 05/05/20 12:04 69 96 05/05/20 11:59 67 96 05/05/20 11:54 69 96 05/05/20 11:52 68 110/66 05/05/20 11:50 98.2 F 20 05/05/20 11:49 67 96 05/05/20 11:46 20 05/05/20 11:44 73 97 05/05/20 11:39 71 97 05/05/20 11:37 72 105/63 05/05/20 11:34 71 96 05/05/20 11:29 76 97 05/05/20 11:24 70 97 05/05/20 11:22 68 110/67 05/05/20 11:19 71 96 05/05/20 11:16 20 05/05/20 11:14 71 95 05/05/20 11:09 73 94 05/05/20 11:05 73 112/61 05/05/20 11:04 81 97 05/05/20 11:00 68 105/58 L 05/05/20 10:59 80 97 05/05/20 10:55 71 102/56 L 05/05/20 10:54 71 96 05/05/20 10:50 73 104/58 L 05/05/20 10:49 68 95 05/05/20 10:46 20 05/05/20 10:45 72 105/58 L 05/05/20 10:44 71 96 05/05/20 10:41 72 92 05/05/20 10:40 68 105/56 L 05/05/20 10:39 72 95 05/05/20 10:36 71 105/57 L 05/05/20 10:34 69 95 05/05/20 10:31 70 20 103/57 L 05/05/20 10:29 72 95 05/05/20 10:25 71 104/57 L 05/05/20 10:24 73 95 05/05/20 10:20 71 103/58 L 05/05/20 10:19 75 95 05/05/20 10:16 20 05/05/20 10:15 66 103/56 L 05/05/20 10:14 73 96 05/05/20 10:10 72 100/56 L 05/05/20 10:09 72 96 05/05/20 10:07 69 103/55 L 05/05/20 10:04 71 95 05/05/20 10:01 20 05/05/20 10:00 70 101/55 L 05/05/20 09:59 72 96 05/05/20 09:56 70 101/56 L 05/05/20 09:54 72 96 05/05/20 09:51 71 104/56 L 94 05/05/20 09:49 70 96 05/05/20 09:45 98.2 F 76 20 107/56 L 05/05/20 09:44 73 97 05/05/20 09:39 78 110/61 98 05/05/20 09:37 83 112/60 05/05/20 09:35 77 114/61 05/05/20 09:34 75 128/60 93 05/05/20 09:31 79 130/76 05/05/20 09:29 94 H 135/74 97 05/05/20 09:24 98 H 133/73 100 05/05/20 07:42 98.2 F 20 Coding Level of Care Code None
[2019-06-17] MEDS ORDERED: Nursing to Pharmacy Communication ONE (18:11)
--- NOTE | 2019-06-17 19:29 | Labor Progress Brief Note ---
Date of Service June 17, 2019 pushing at full dilatation. Results & Data Vital Signs (Past 12 Hours) Vital Signs Temp Pulse Resp BP Pulse Ox 06/17/19 19:24 99 H 96 06/17/19 19:22 79 114/61 06/17/19 19:19 90 98 06/17/19 19:18 86 90 06/17/19 19:14 76 97 06/17/19 19:11 98.8 F 06/17/19 19:09 77 99 06/17/19 19:08 78 115/62 06/17/19 19:04 77 97 06/17/19 18:59 77 97 06/17/19 18:54 88 162/126 H 99 06/17/19 18:49 85 98 06/17/19 18:46 20 06/17/19 18:44 87 99 06/17/19 18:42 83 88 L 06/17/19 18:39 86 99 06/17/19 18:37 88 114/65 06/17/19 18:36 107 H 82 L 06/17/19 18:34 80 99 06/17/19 18:30 82 87 L 06/17/19 18:29 80 100 06/17/19 18:25 89 87 L 06/17/19 18:24 90 93 06/17/19 18:23 81 110/59 L 06/17/19 18:19 106 H 100 06/17/19 18:16 20 06/17/19 18:15 98.2 F 20 06/17/19 18:14 87 100 06/17/19 18:10 112 H 90 06/17/19 18:09 90 100 06/17/19 18:07 82 119/58 L 06/17/19 18:04 86 100 06/17/19 18:01 20 06/17/19 17:59 95 H 99 05 17:55 116 H 89 L 05 17:54 96 H 100 06/17/19 17:53 87 115/59 L 0505 17:49 110 H 97 06/17/19 17:46 87 85 L 0505 17:44 89 100 050520 17:39 86 100 0505 17:38 109 H 127/69 87 L 06/17/19 17:34 88 100 05/05/20 17:31 20 05/05/20 17:29 102 H 81 L 05/05/20 17:24 87 100 05/05/20 17:23 76 121/64 05/05/20 17:19 78 99 05/05/20 17:16 20 05/05/20 17:14 75 100 05/05/20 17:09 82 100 05/05/20 17:08 84 117/69 05/05/20 17:04 95 H 97 05/05/20 16:59 75 100 05/05/20 16:54 84 100 05/05/20 16:53 85 119/65 05/05/20 16:49 90 99 05/05/20 16:46 98.4 F 20 05/05/20 16:44 75 99 05/05/20 16:39 71 110/62 99 05/05/20 16:34 76 100 05/05/20 16:29 82 97 05/05/20 16:24 73 99 05/05/20 16:23 70 115/62 05/05/20 16:19 71 100 05/05/20 16:14 73 100 05/05/20 16:09 81 100 05/05/20 16:04 77 100 05/05/20 15:59 89 100 05/05/20 15:55 98.2 F 05/05/20 15:54 82 100 05/05/20 15:52 78 112/72 05/05/20 15:49 80 100 05/05/20 15:46 20 05/05/20 15:44 82 100 05/05/20 15:39 85 100 05/05/20 15:37 80 107/65 05/05/20 15:34 79 100 05/05/20 15:29 101 H 94 05/05/20 15:24 74 100 05/05/20 15:22 86 110/63 05/05/20 15:19 103 H 95 05/05/20 15:14 81 100 05/05/20 15:09 95 H 100 05/05/20 15:07 73 111/64 05/05/20 15:04 74 100 05/05/20 14:59 78 100 05/05/20 14:54 78 100 05/05/20 14:52 76 108/60 05/05/20 14:49 85 100 05/05/20 14:46 20 05/05/20 14:44 83 100 05/05/20 14:39 74 100 05/05/20 14:37 65 110/63 05/05/20 14:34 70 100 05/05/20 14:29 79 100 05/05/20 14:24 72 105/65 100 05/05/20 14:19 71 100 05/05/20 14:16 20 05/05/20 14:14 69 100 05/05/20 14:09 74 109/61 100 05/05/20 14:04 78 100 05/05/20 13:59 85 100 05/05/20 13:54 74 100 05/05/20 13:52 73 101/58 L 05/05/20 13:49 78 100 05/05/20 13:45 98.4 F 05/05/20 13:44 81 99 05/05/20 13:39 80 100 05/05/20 13:37 90 92/53 L 05/05/20 13:34 81 99 05/05/20 13:29 78 99 05/05/20 13:24 82 100 05/05/20 13:22 74 97/52 L 05/05/20 13:19 73 100 05/05/20 13:16 20 05/05/20 13:14 74 100 05/05/20 13:09 73 94/53 L 100 05/05/20 13:04 73 100 05/05/20 13:01 20 05/05/20 12:59 80 91/54 L 100 05/05/20 12:54 78 98 05/05/20 12:53 68 84/50 L 05/05/20 12:49 73 98 05/05/20 12:46 20 05/05/20 12:44 71 97 05/05/20 12:39 74 99 05/05/20 12:38 71 89/52 L 05/05/20 12:34 71 99 05/05/20 12:29 89 99 05/05/20 12:24 69 97 05/05/20 12:23 64 106/64 05/05/20 12:19 67 97 05/05/20 12:16 20 05/05/20 12:14 81 98 05/05/20 12:09 72 111/65 96 05/05/20 12:04 69 96 05/05/20 11:59 67 96 05/05/20 11:54 69 96 05/05/20 11:52 68 110/66 05/05/20 11:50 98.2 F 20 05/05/20 11:49 67 96 05/05/20 11:46 20 05/05/20 11:44 73 97 05/05/20 11:39 71 97 05/05/20 11:37 72 105/63 05/05/20 11:34 71 96 05/05/20 11:29 76 97 05/05/20 11:24 70 97 05/05/20 11:22 68 110/67 05/05/20 11:19 71 96 05/05/20 11:16 20 05/05/20 11:14 71 95 05/05/20 11:09 73 94 05/05/20 11:05 73 112/61 05/05/20 11:04 81 97 05/05/20 11:00 68 105/58 L 05/05/20 10:59 80 97 05/05/20 10:55 71 102/56 L 05/05/20 10:54 71 96 05/05/20 10:50 73 104/58 L 05/05/20 10:49 68 95 05/05/20 10:46 20 05/05/20 10:45 72 105/58 L 05/05/20 10:44 71 96 05/05/20 10:41 72 92 05/05/20 10:40 68 105/56 L 05/05/20 10:39 72 95 05/05/20 10:36 71 105/57 L 05/05/20 10:34 69 95 05/05/20 10:31 70 20 103/57 L 05/05/20 10:29 72 95 05/05/20 10:25 71 104/57 L 05/05/20 10:24 73 95 05/05/20 10:20 71 103/58 L 05/05/20 10:19 75 95 05/05/20 10:16 20 05/05/20 10:15 66 103/56 L 05/05/20 10:14 73 96 05/05/20 10:10 72 100/56 L 05/05/20 10:09 72 96 05/05/20 10:07 69 103/55 L 05/05/20 10:04 71 95 05/05/20 10:01 20 06/17/19 10:00 70 101/55 L 06/17/19 09:59 72 96 06/17/19 09:56 70 101/56 L 06/17/19 09:54 72 96 06/17/19 09:51 71 104/56 L 94 06/17/19 09:49 70 96 06/17/19 09:45 98.2 F 76 20 107/56 L 06/17/19 09:44 73 97 06/17/19 09:39 78 110/61 98 06/17/19 09:37 83 112/60 06/17/19 09:35 77 114/61 06/17/19 09:34 75 128/60 93 06/17/19 09:31 79 130/76 06/17/19 09:29 94 H 135/74 97 06/17/19 09:24 98 H 133/73 100 06/17/19 07:42 98.2 F 20 Coding Level of Care Code None
--- NOTE | 2019-06-17 20:37 | Delivery Summary ---
Vaginal Delivery Summary Date of Service June 17, 2019 Vaginal Delivery Summary Patient had pushed for approximately 2-1/2 hours was starting to become exhausted the baby was in occiput anterior position I did offer vacuum assistance and she agreed we discussed risks of vacuum vacuum extraction as well bladder was drained for approximately 50 mL of urine with a red rubber catheter I then examined was a +1 to +2 station vacuum was placed and required a total of 2 pulls with no pull offs that is over 2 contractions and baby was delivered without difficulty a very small midline episiotomy was made to facilitate delivery there was light meconium mouth and the nares suctioned with bulb there was a loose nuchal cord passed over the head gentle traction of the baby no excessive force live vigorous female cord clamped and cut cord gases obtained cord blood obtained placenta removed with gentle traction IV Pitocin started small episiotomy pair with 3-0 Vicryl rectal exam negative for sutures or defects sponge and instrument counts correct estimated blood loss 300 mL
[2019-06-17] MEDS ORDERED: ACETAMINOPHEN 325 MG TAB PO PRN (20:47)
[2019-06-17] MEDS ORDERED: DIPHTHERIA/TETANUS/PERTUSSIS 0.5 ML SYR/VIAL IM ONE (20:47)
[2019-06-17] MEDS ORDERED: OXYCODONE/ACETAMINOPHEN 5mg/325mg TAB PO PRN (20:47)
[2019-06-17] MEDS ORDERED: bisacodyL 10 MG SUPP PR PRN (20:47)
[2019-06-17] MEDS ORDERED: HYDROCORTISONE ACETATE 25 MG SUPP PR PRN (20:47)
[2019-06-17] MEDS ORDERED: BENZOCAINE 20% AER SPR 82.5 GM CAN EXT PRN (20:47)
[2019-06-17] MEDS ORDERED: SUPERCREAM 0.870% 15 GM JAR EXT PRN (20:47)
[2019-06-17 21:08] LABS: Base Excess Cord Venous Blood -3.4 mEq/L (-7.7-1.9); Cord Venous Blood HCO3 22 mmol/L (18.4-26.8); Cord Venous Blood PCO2 41 mmHg (30.4-57.2); Cord Venous Blood PO2 28 mmHg (14.1-43.3); Cord Venous Blood pH 7.34 (7.20-7.44)
--- NOTE | 2019-06-17 21:25 | Anesthesia Procedure Note ---
Date of Service June 17, 2019 Anesthesia Post Epidural Note Vital Signs Vital Signs: Temp Pulse Resp BP Pulse Ox 37.1 C 78 18 114/76 100 06/17/19 19:11 06/17/19 21:17 06/17/19 19:05 06/17/19 21:17 06/17/19 20:44 Pain Intensity Abdomen: Pain Intensity: 0 Notes Mental Status: alert / awake / arousable and participated in evaluation Nausea / Vomiting: adequately controlled Pain: adequately controlled Airway Patency, RR, SpO2: stable & adequate BP & HR: stable & adequate Hydration State: stable & adequate Neuraxial Anesthesia: was administered and sensory block is resolving Anesthetic Complications: no major complications apparent and Pt Satisfied with anesthetic care Epidural: Removed without complications and With tip intact
[2019-06-17] MEDS: IBUPROFEN 600 MG TAB PO PRN (21:36)
[2019-06-17] MEDS: DOCUSATE SODIUM 100 MG CAP PO SCH (23:23)
[2019-06-18] MEDS ORDERED: CITRIC ACID/SODIUM CITRATE 15 ML UDC PO SCH (06:00)
[2019-06-18] MEDS ORDERED: CEFAZOLIN 3000MG 65 ML IV SCH (06:00)
[2019-06-18 07:00] LABS: Hematocrit (blood only) 29.8 % (37-47); Hemoglobin 10.1 g/dL (12.0-16.0); Mean Corpuscular Hemoglobin 29.4 pg (25-34); Mean Corpuscular Hgb Conc 33.9 g/dL (32-36); Mean Corpuscular Volume 86.9 fL (80-100); Platelet Count 167 K/uL (130-400); RDW Coefficient of Variation 14.1 % (11.5-14.5); RDW Standard Deviation 44.5 fL (36.4-46.3); Red Blood Count 3.43 M/uL (4.2-5.4)
--- NOTE | 2019-06-18 07:11 | Obstetrical Progress Note ---
Date of Service June 18, 2019 Assessment & Plan (1) : PPD 1 from vaccuum cont current care Subjective Ambulation: ambulating normally Voiding: no voiding problems Diet Tolerance:: regular diet Lochia:: Small Feeding Type:: breast feeding Current Pain Level(1-10): 0 well Physical Exam Constitutional WD/WN, vitals as above (Min bleeding, no ext pain) Results & Data Vital Signs (Past 12 Hours) Vital Signs Temp Pulse Pulse Resp BP BP Pulse Ox 06/18/19 03:20 98.1 F 76 16 107/67 06/17/19 23:30 97.5 F L 67 18 113/68 06/17/19 22:32 85 126/72 06/17/19 22:17 73 116/64 06/17/19 22:02 76 116/66 06/17/19 21:47 81 111/71 06/17/19 21:32 81 112/70 06/17/19 21:17 78 114/76 06/17/19 21:02 81 112/66 06/17/19 20:47 78 115/66 06/17/19 20:44 82 100 0520 20:39 79 98 05 20:34 89 100 20 20:32 90 116/61 06/17/19 20:30 98.6 F 18 06/17/19 20:29 88 99 05 20:24 85 98 05 20:22 82 111/59 L 05 20:19 86 97 05 20:14 78 98 05 20:09 90 98 05 20:07 91 H 112/57 L 05 20:04 89 98 05 19:59 81 97 0520 19:54 82 98 0520 19:52 78 106/58 L 0520 19:49 82 97 0520 19:48 85 90 0520 19:44 85 97 0520 19:43 92 H 88 L 0520 19:39 81 97 050520 19:37 70 115/63 050520 19:34 94 H 98 05 19:29 75 96 05 19:24 99 H 96 05/05/20 19:22 79 114/61 06/17/19 19:19 90 98 06/17/19 19:18 86 90 06/17/19 19:14 76 97 06/17/19 19:11 98.8 F
[2019-06-18] MEDS ORDERED: MEASLES, MUMPS & RUBELLA VIRUS VIAL SQ ONE (08:05)
[2019-06-18] MEDS: DOCUSATE SODIUM 100 MG CAP PO SCH ×2 (08:23→19:51)
[2019-06-18] MEDS: IBUPROFEN 600 MG TAB PO PRN ×3 (08:24→18:06)
[2019-06-18] MEDS: FERROUS SULFATE 325 MG TAB PO SCH (08:24)
[2019-06-18] MEDS ORDERED: PRENATAL VITAMIN 1 TAB PO SCH (09:00)
[2019-06-18] MEDS: PRENATAL VITAMIN 1 TAB PO SCH (09:41)
[2019-06-18] MEDS ORDERED: bisacodyL 5 MG TABEC PO SCH (20:00)
[2019-06-19] MEDS: IBUPROFEN 600 MG TAB PO PRN ×3 (00:26→17:15)
[2019-06-19 06:44] LABS: Hematocrit (blood only) 27.5 % (37-47); Hemoglobin 9.1 g/dL (12.0-16.0)
--- NOTE | 2019-06-19 07:40 | Obstetrical Progress Note ---
Date of Service June 19, 2019 Assessment & Plan (1) care and examination: Day 2 s/p VAVD. Doing well. Stable for discharge Subjective Ambulation: ambulating normally Voiding: no voiding problems Passing Gas:: Yes Diet Tolerance:: regular diet Lochia:: Moderate Feeding Type:: breast feeding Physical Exam Constitutional WD/WN, vitals as above Respiratory normal respiratory effort; no respiratory distress and no labored breathing Gastrointestinal (Abdomen) Inspection/Auscultation: abdomen normal to inspection; abdomen not distended Percussion/Palpation: abdomen soft; abdomen nontender, no guarding and abdomen not rigid Genitourinary OB Exam Abdomen: + fundal height Fundus: + firm and + relation to umbilicus (Below); not tender and not boggy Results & Data Vital Signs (Past 12 Hours) Vital Signs Temp Pulse Resp BP Pulse Ox 06/19/19 00:20 36.7 C 76 18 97/56 L 06/18/19 19:50 36.6 C 80 18 113/77 98
[2019-06-19] MEDS: PRENATAL VITAMIN 1 TAB PO SCH (08:41)
[2019-06-19] MEDS: FERROUS SULFATE 325 MG TAB PO SCH (08:41)
[2019-06-19] MEDS: DOCUSATE SODIUM 100 MG CAP PO SCH (08:41)
[2019-06-19] MEDS ORDERED: HYDROCORTISONE 2.5% CR 30 GM TUBE EXT PRN (16:56)
[2019-06-19] MEDS ORDERED: HYDROCORTISONE HC 2.5% CRM 30GM TUBE EXT PRN (17:16)
--- NOTE | 2019-06-25 09:20 | Discharge Summary ---
Date of Service June 25, 2019 Admission HPI Per Admitting Provider 34yo at 40+wks shawn presents to L&D with above cc. She was here overnight and sent home after no active labor and was 2cm. She recalle with rom clear fluid at 0630 and stronger ctx and advised to return. Some bleeding on and off since exams. +FM. Wants to hypnobirth, had a plan that I did not see until overnight and aware we can not honor some of her wishes. PNC c/b 1. need for mmr pp 2. h/o LLP, resolved at 32wk us PNL rh pos, r equiv, gbs neg OBH: g1 GYNH: nl paps, no stds. All Active Problems (Updated 06/17/19 @ 08:14 by Lexii Ring MD, FACOG) Active labor at term Need for rubella vaccination Supervision of normal intrauterine in primigravida Admission Exam (Per Admitting) Constitutional WD/WN, vitals as above (Min bleeding, no ext pain) Discharge Data Consultations 06/17/19 08:10 Consult Anesthesiology Stat Hospital Course (1) care and examination: Day 2 s/p VAVD. Doing well. Stable for discharge Coding Level of Care Code None Diagnoses care and examination Z39.2
== END 2019-06-19 19:25 | disposition home or self-care (01) | DRG 807 ==
LOC: OPB 07:24 → 4S1 07:27 → 4S2 22:55

== ENCOUNTER 2023-03-27 07:40 | Inpatient (IN) ==
--- NOTE | 2023-03-27 08:15 | History & Physical Report ---
Date of Service March 27, 2023 Assessment & Plan (1) GBS carrier: (2) Encounter for induction of labor: Plan 37 y/o here for induction Epidural when requested AROM when indicated Pitocin augmentation as needed for adequate contraction Monitor tracing, category 1 Admission and Anticipated Discharge Date Admission Date: March 27, 2023 History of Present Illness Primary Care Provider: Mikey Bautista MD Ernestina is a 37 y/o at 39 1/7 weeks of gestation. ROBERT:. Here for Induction. Complications with this include AMA and Polyhydramnios 8.3 cm. Has been attending OB appointments regularly. Currently . GBS+ , Rubella immune, BTG: A+ Contractions: none Fluid or Blood loss: none Movement: active FHR baseline 130, moderate variability, accelerations present, decelerations absent Lab Results OB Labs: Blood Type A Positive 08/28/22 Antibody Screen NEGATIVE 08/28/22 Hemoglobin 11.1 g/dl (12.0-16.0) L 01/15/23 Hematocrit 33.0 % (37.0-47.0) L 01/15/23 Mean Corpuscular Volume 84.2 fL (80.0-100.0) 08/28/22 Platelet Count 239 K/uL (130-400) 08/28/22 Rubella IgG Antibody Immune (Immune) 08/28/22 Rapid Plasma Reagin Nonreactive (Nonreactive) 01/15/23 Hepatitis B Surface Antigen Neg (Neg) 11/20/18 Hepatitis B Surface Antigen. NON-REACTIVE (NON-REACTIVE) 08/28/22 Hepatitis C Antibody (EIA) NON-REACTIVE (NON-REACTIVE) 08/28/22 HIV (1&2) Ab and P24 Ag, 4th Gener Neg (Neg) 11/20/18 HIV (1&2) Ag and Ab Confirmation NON-REACTIVE (NON-REACTIVE) 08/28/22 Glucose 1 Hour 50 gm Load 98 mg/dl (70-130) 01/15/23 Maternal Serum Alpha Fetoprotein 34.3 ng/mL 10/20/22 OB Optional Labs: Chlamydia trachomatis RNA Not Detected (NotDetected) 08/28/22 Neisseria gonorrhoeae RNA Not Detected (NotDetected) 08/28/22 Thyroid Stimulating Hormone (TSH) 1.74 mIU/L 01/26/21 Alpha Fetoprotein Triple Screen SEE NOTE 10/20/22 Labs Reviewed: cfdna-low risk--mln neg msafp smp Allergies Allergy/AdvReac Type Severity Reaction Status Date / Time Sulfa (Sulfonamide AdvReac Intermediate Hives Verified 03/26/23 13:52 Antibiotics) Home Medications Medication Instructions Recorded Confirmed Type vits no.124-ferrous fum 1 tab PO DAILY 03/13/23 03/27/23 History 27 mg iron-folic acid 800 mcg tablet ( Vitamin) Patient History Medical History History of COVID-19 Missed size inconsistent with dates Sensation of fullness in left ear Varicella vaccine Yeast infection Surgical History S/P tooth extraction S/P ACL repair S/P nasal septoplasty Family History Brother Testicular cancer Family/Other Ovarian cancer Grandmother No problems noted. Uncle Myocardial infarction Hypertension Hypercholesteremia Grandfather (Paternal) Hypertension Father Hypercholesteremia Mother Fibroid Denies family history of Prostate cancer Breast cancer Colorectal cancer Social History (Updated 03/27/23 @ 07:51 by Kelsie Rooney, MC) Smoking Status: Never smoker Second Hand Exposure: No; Do You Dip or Chew Tobacco: No; Tobacco Cessation Education Requested by Patient: No Hx Alcohol Use: No Hx Substance Use: No Preferred Language: Estonian Communication Ability: Effective Visual Impairment: No Limitations Hearing Ability: Normal Technical Service Rep Required: No Beliefs That Will Affect Care: None marital status: marital status details: Izaiah Causey [phone] Current Living Situation: Spouse and Family Current Living Situation Comment: lives with , 1 daughter, 1 dog current occupational status: employed 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 Skin: warm, dry, intact Heart: +S1/S2, regular, no m/r/g Lungs: equal air entry bilaterally, no rales/rhonchi/wheezes Abd: +BS, soft, NT/ND, gravid uterus Cervical: uterus mod. anterior Ext: warm, no clubbing/cyanosis or edema Results & Data Vital Signs (Past 12 Hours) Vital Signs Pulse BP 03/27/23 07:44 87 115/68 Supervising Physician Co-Signing Physician Notes Resident Physician Supervision Note: I was present with Dr. Bhavik Hernandez during the history and exam. I discussed the case with the resident and agree with the findings and plan as documented in the note. Any exceptions or clarifications are listed here: 37yo @ 39 03/21, IOL for polyhydramnios found on BPP yesterday in office. GBS+ PCN prophylaxis. Plan for pitocin. OK for epidural when she desires. Documented By: Norma Gregory, Resident Activity Tracking Resident Involvement: Resident Care Provided Care Provided: OB Delivery
[2023-03-27] MEDS ORDERED: LIDOCAINE 1% LOCAL 20 ML VIAL INFIL PRN (08:31)
[2023-03-27] MEDS ORDERED: OXYTOCIN 30 UNITS/NSS 30 UNITS/500 ML BAG IV PRN (08:31)
[2023-03-27 09:07] LABS: Hematocrit (blood only) 34.4 % (37.0-47.0); Hemoglobin 11.5 g/dl (12.0-16.0); Mean Corpuscular Hemoglobin 28.7 pg (25.0-34.0); Mean Corpuscular Hgb Conc 33.4 g/dL (32.0-36.0); Mean Corpuscular Volume 85.8 fL (80.0-100.0); Mean Platelet Volume 11.9 fL (9.4-12.4); Platelet Count 209 K/uL (130-400); RDW Standard Deviation 43.6 fL (36.4-46.3); Red Blood Count 4.01 M/uL (4.20-5.40); White Blood Count 19.46 K/ul (4.8-10.8)
[2023-03-27] MEDS: OXYTOCIN 30 UNITS/NSS 30 UNITS/500 ML BAG IV PRN (09:45)
[2023-03-27] MEDS: LACTATED RINGER'S 1,000 ML IV PRN (09:49)
[2023-03-27] MEDS: PENICILLIN GK 6 MU in DEXTROSE 5% 250 ML IV STA (10:20)
--- NOTE | 2023-03-27 13:51 | Anesthesiology Consultation ---
Date of Service March 27, 2023 Assessment & Plan Chart Review Chart Review: Patient NOT seen in Pre Admission Testing and Acceptable Risk for Labor Epidural ASA ASA2 Proposed Anesthesia Anesthesia Type: Labor Epidural Risk / Benefits Reviewed With: PT / POA / Parent / Guardian, Accepts Plan and Informed Consent Obtained History Height/Weight Height: 5 ft 10 in Weight: 105.596 kg Allergies Allergy/AdvReac Type Severity Reaction Status Date / Time Sulfa (Sulfonamide AdvReac Intermediate Hives Verified 03/26/23 13:52 Antibiotics) Medications Home Medications Medication Instructions Recorded Confirmed Last Taken vits no.124-ferrous fum 1 tab PO DAILY 03/13/23 03/27/23 03/26/23 09:00 27 mg iron-folic acid 800 mcg tablet ( Vitamin) Active Medications Generic Name Dose Route Start Last Admin Trade Name Freq PRN Reason Stop Dose Admin Lactated Ringer's 1,000 mls @ 125 mls/hr 03/27/23 08:31 03/27/23 13:20 Lr IV 03/29/23 08:30 999 mls/hr .Q8H PRN Administration L&D Protocol Protocol Oxytocin 30 units in 500 mls @ 7 mls/hr 03/27/23 09:27 03/27/23 12:05 Pitocin 30 Units/Nss IV 03/29/23 09:26 0.42 units/hr .Q24H PRN 7 mls/hr Labor Induction/Augmentation Titration Protocol 0.42 UNITS/HR NPO Date Last Intake of Fluids: 03/27/23 Time Last Intake of Fluids: 13:00 Date Last Intake of Solids: 03/27/23 Time Last Intake of Solids: 07:00 Past Medical History Medical History History of COVID-19 Missed size inconsistent with dates Sensation of fullness in left ear Varicella vaccine Yeast infection Exercise / Class Metabolic Activity 1 > 8 Run/Swim/Ski/Tennis Past Family History Family History Brother Testicular cancer Family/Other Ovarian cancer Grandmother No problems noted. Uncle Myocardial infarction Hypertension Hypercholesteremia Grandfather (Paternal) Hypertension Father Hypercholesteremia Mother Fibroid Denies family history of Prostate cancer Breast cancer Colorectal cancer Past Surgical History Surgical History S/P tooth extraction S/P ACL repair S/P nasal septoplasty Past Anesthesia History No Hx of Anesthesia Complications and No Family Hx of Anesthesia Complications Social History Smoking Status: Never smoker Do You Dip or Chew Tobacco: No Hx Alcohol Use: No alcohol intake frequency: a few times a week Hx Substance Use: No substance use type: does not use Review of Systems ROS Unobtainable: All systems reviewed & are unremarkable except as noted in HPI & below Physical Exam Vital Signs Last Vital Signs Temp 36.7 C 03/27/23 10:45 Pulse 75 03/27/23 13:25 Resp 16 03/27/23 11:30 BP 121/75 03/27/23 13:25 ENMT Mouth: no TMJ abnormality Thyromental Distance: > or= 3.5 Finger Breadths Mallampati Class: II Neck normal visual inspection and trachea midline; neck extension not limited Respiratory normal respiratory effort Auscultation: lungs clear to auscultation bilaterally Cardiovascular Rate/Rhythm: regular rate and regular rhythm Heart Sounds: no murmur Musculoskeletal Spine: normal cervical ROM Extremities: full ROM of extremities Neurologic moves all extremities Psychiatric Orientation: alert and oriented x 3 Testing Laboratory Results 03/27/23 08:48 Blood Type A Positive 03/27/23 08:48 Antibody Screen NEGATIVE 03/27/23 08:48
[2023-03-27] MEDS: BUPIVACAINE 0.25% PF 30 ML VIAL ONE (14:03)
[2023-03-27] MEDS: LIDOCAINE 2%/EPINEPHRINE 1:200,000 20 ML PF ONE (14:03)
[2023-03-27] MEDS: fentANYL 2 MCG/ML BUPIVacaine 0.125%-NSS 100ML BAG ONE (14:04)
[2023-03-27] MEDS: SODIUM CHLORIDE 0.9% PF INJ 10 ML VIAL ONE (14:06)
[2023-03-27] MEDS ORDERED: LIDOCAINE 2% MPF LOCAL 5 ML VIAL EPI PRN (14:07)
[2023-03-27] MEDS ORDERED: ROPIVACAINE 0.5% PF 5 MG/ML 20 ML VIAL EPI PRN (14:07)
[2023-03-27] MEDS ORDERED: NALOXONE HCL 1 MG in SODIUM CHLORIDE 0.9% 1,000 ML IV PRN (14:07)
[2023-03-27] MEDS ORDERED: ePHEDrine sulfate 50 MG/ML AMP IV PRN (14:07)
[2023-03-27] MEDS ORDERED: fentaNYL citrate PF 100 MCG/2 ML VIAL EPI PRN (14:07)
[2023-03-27] MEDS ORDERED: BUPIVACAINE 0.25% PF 30 ML VIAL EPI PRN (14:07)
[2023-03-27] MEDS: PENICILLIN GK 3 MU in DEXTROSE 5% 100 ML IV PRN (14:07)
[2023-03-27] MEDS ORDERED: diphenhydrAMINE 50 MG/ML VIAL IV PRN (14:07)
[2023-03-27] MEDS ORDERED: fentANYL 2 MCG/ML BUPIVacaine 0.125%-NSS 100ML BAG EPI PRN (14:07)
[2023-03-27] MEDS ORDERED: NALOXONE HCL 0.4 MG/1 ML VIAL/CARP IV PRN (14:07)
[2023-03-27] MEDS ORDERED: NALBUPHINE HCL 5 MG in SYRINGE 0 ML IV PRN (14:07)
[2023-03-27] MEDS ORDERED: SODIUM CHLORIDE 0.9% PF INJ 10 ML VIAL EPI PRN (14:07)
[2023-03-27] MEDS: ePHEDrine sulfate 50 MG/ML AMP ONE (15:21)
[2023-03-27] MEDS: fentaNYL citrate PF 100 MCG/2 ML VIAL ONE (15:21)
[2023-03-27] MEDS: BUPIVACAINE 0.25% PF 30 ML VIAL EPI STA (15:23)
[2023-03-27] MEDS: fentaNYL citrate PF 100 MCG/2 ML VIAL EPI STA (15:23)
[2023-03-27] MEDS: LIDOCAINE 2%/EPINEPHRINE 1:200,000 20 ML PF EPI STA (15:24)
[2023-03-27] MEDS: SODIUM CHLORIDE 0.9% PF INJ 10 ML VIAL EPI STA (15:25)
--- NOTE | 2023-03-27 20:10 | Labor Progress Brief Note ---
Date of Service March 27, 2023 Subjective Comfortable with epidural. FHT Cat 1 [place] Q 2 SVE 6-7/90/-1 Continue pitocin. Assessment & Plan Admission and Anticipated Discharge Date Admission Date: March 27, 2023 Results & Data Vital Signs (Past 12 Hours) Vital Signs Temp Pulse Resp BP Pulse Ox 03/27/23 20:07 100 03/27/23 20:07 68 03/27/23 20:07 95/53 L 03/27/23 20:02 100 03/27/23 20:02 71 03/27/23 19:57 98 03/27/23 19:57 75 03/27/23 19:52 100 03/27/23 19:52 74 03/27/23 19:51 66 03/27/23 19:51 101/54 L 03/27/23 19:47 99 03/27/23 19:47 67 03/27/23 19:42 100 03/27/23 19:42 71 03/27/23 19:37 100 03/27/23 19:37 68 03/27/23 19:36 78 03/27/23 19:36 93/54 L 03/27/23 19:32 100 03/27/23 19:32 66 03/27/23 19:27 100 03/27/23 19:27 67 03/27/23 19:22 100 03/27/23 19:22 66 03/27/23 19:22 68 03/27/23 19:22 90/51 L 03/27/23 19:17 100 03/27/23 19:17 65 03/27/23 19:12 100 03/27/23 19:12 69 03/27/23 19:07 95 03/27/23 19:07 68 03/27/23 19:07 69 03/27/23 19:07 101/61 03/27/23 19:04 36.5 C 18 03/27/23 19:04 18 03/27/23 19:02 91 03/27/23 19:02 67 03/27/23 19:00 16 03/27/23 19:00 16 03/27/23 18:57 100 03/27/23 18:57 67 03/27/23 18:52 100 03/27/23 18:52 66 03/27/23 18:52 67 03/27/23 18:52 98/51 L 03/27/23 18:47 100 03/27/23 18:47 62 03/27/23 18:42 100 03/27/23 18:42 64 03/27/23 18:41 65 03/27/23 18:41 91/55 L 03/27/23 18:37 96 03/27/23 18:37 64 03/27/23 18:37 65 03/27/23 18:37 90/52 L 03/27/23 18:32 100 03/27/23 18:32 68 03/27/23 18:30 18 03/27/23 18:30 36.6 C 18 03/27/23 18:27 100 03/27/23 18:27 60 03/27/23 18:22 100 03/27/23 18:22 72 03/27/23 18:22 65 03/27/23 18:22 90/55 L 03/27/23 18:17 99 03/27/23 18:17 69 03/27/23 18:12 99 03/27/23 18:12 70 03/27/23 18:07 100 03/27/23 18:07 65 03/27/23 18:06 74 03/27/23 18:06 93/58 L 03/27/23 18:02 100 03/27/23 18:02 65 03/27/23 18:00 16 03/27/23 18:00 16 03/27/23 17:57 100 03/27/23 17:57 68 03/27/23 17:52 99 03/27/23 17:52 76 03/27/23 17:51 91 03/27/23 17:51 57 L 03/27/23 17:51 95/61 L 03/27/23 17:47 100 03/27/23 17:47 62 03/27/23 17:42 100 03/27/23 17:42 59 L 03/27/23 17:37 100 03/27/23 17:37 61 03/27/23 17:36 56 L 03/27/23 17:36 98/55 L 03/27/23 17:32 100 03/27/23 17:32 58 L 03/27/23 17:30 18 03/27/23 17:30 18 03/27/23 17:27 100 03/27/23 17:27 59 L 03/27/23 17:25 60 03/27/23 17:25 99/62 L 03/27/23 17:22 100 03/27/23 17:22 58 L 03/27/23 17:17 100 03/27/23 17:17 61 03/27/23 17:12 100 03/27/23 17:12 58 L 03/27/23 17:12 61 03/27/23 17:12 102/62 03/27/23 17:07 99 03/27/23 17:07 61 03/27/23 17:02 97 03/27/23 17:02 68 03/27/23 17:00 16 03/27/23 17:00 36.7 C 16 03/27/23 16:57 100 03/27/23 16:57 58 L 03/27/23 16:52 100 03/27/23 16:52 58 L 03/27/23 16:51 55 L 03/27/23 16:51 104/59 L 03/27/23 16:47 100 03/27/23 16:47 70 03/27/23 16:42 99 03/27/23 16:42 57 L 03/27/23 16:38 61 03/27/23 16:38 106/56 L 03/27/23 16:37 97 03/27/23 16:37 61 03/27/23 16:32 99 03/27/23 16:32 59 L 03/27/23 16:30 16 03/27/23 16:30 16 03/27/23 16:27 100 03/27/23 16:27 65 03/27/23 16:22 99 03/27/23 16:22 61 03/27/23 16:22 106/62 03/27/23 16:17 100 03/27/23 16:17 63 03/27/23 16:12 100 03/27/23 16:12 69 03/27/23 16:08 93 03/27/23 16:08 86 03/27/23 16:07 97 03/27/23 16:07 77 03/27/23 16:07 72 03/27/23 16:07 126/70 03/27/23 16:02 100 03/27/23 16:02 62 03/27/23 16:00 18 03/27/23 16:00 18 03/27/23 15:57 99 03/27/23 15:57 71 03/27/23 15:52 100 03/27/23 15:52 65 03/27/23 15:51 60 03/27/23 15:51 105/61 03/27/23 15:47 100 03/27/23 15:47 60 03/27/23 15:42 100 03/27/23 15:42 69 03/27/23 15:40 71 03/27/23 15:40 102/51 L 03/27/23 15:37 18 03/27/23 15:37 36.6 C 18 03/27/23 15:37 100 03/27/23 15:37 87 03/27/23 15:32 100 03/27/23 15:32 81 03/27/23 15:30 18 03/27/23 15:30 18 03/27/23 15:27 100 03/27/23 15:27 74 03/27/23 15:22 100 03/27/23 15:22 75 03/27/23 15:21 75 03/27/23 15:21 90/52 L 03/27/23 15:17 100 03/27/23 15:17 76 03/27/23 15:12 100 03/27/23 15:12 76 03/27/23 15:11 76 03/27/23 15:11 90/51 L 03/27/23 15:07 100 03/27/23 15:07 77 03/27/23 15:07 77 03/27/23 15:07 87/52 L 03/27/23 15:02 100 03/27/23 15:02 78 03/27/23 15:00 16 03/27/23 15:00 16 03/27/23 14:57 100 03/27/23 14:57 78 03/27/23 14:52 99 03/27/23 14:52 85 03/27/23 14:52 77 03/27/23 14:52 101/55 L 03/27/23 14:47 97 03/27/23 14:47 82 03/27/23 14:42 100 03/27/23 14:42 82 03/27/23 14:37 100 03/27/23 14:37 79 03/27/23 14:35 80 03/27/23 14:35 105/55 L 03/27/23 14:32 100 03/27/23 14:32 74 03/27/23 14:31 16 03/27/23 14:31 16 03/27/23 14:31 75 03/27/23 14:31 114/57 L 03/27/23 14:27 100 03/27/23 14:27 75 03/27/23 14:26 16 03/27/23 14:26 16 03/27/23 14:26 76 03/27/23 14:26 108/55 L 03/27/23 14:22 100 03/27/23 14:22 77 03/27/23 14:20 16 03/27/23 14:20 16 03/27/23 14:20 79 03/27/23 14:20 101/54 L 03/27/23 14:17 100 03/27/23 14:17 79 03/27/23 14:14 16 03/27/23 14:14 16 03/27/23 14:14 81 03/27/23 14:14 103/54 L 03/27/23 14:12 100 03/27/23 14:12 83 03/27/23 14:12 105/53 L 03/27/23 14:10 16 03/27/23 14:10 16 03/27/23 14:10 80 03/27/23 14:10 109/55 L 03/27/23 14:08 16 03/27/23 14:08 16 03/27/23 14:08 83 03/27/23 14:08 124/57 L 03/27/23 14:07 100 03/27/23 14:07 83 03/27/23 14:06 18 03/27/23 14:06 18 03/27/23 14:06 78 03/27/23 14:06 105/51 L 03/27/23 14:04 80 03/27/23 14:04 100/57 L 03/27/23 14:02 100 03/27/23 14:02 78 03/27/23 14:02 116/56 L 03/27/23 14:01 16 03/27/23 14:01 16 03/27/23 14:00 78 03/27/23 14:00 120/68 03/27/23 13:58 81 03/27/23 13:58 122/71 03/27/23 13:57 100 03/27/23 13:57 84 03/27/23 13:52 100 03/27/23 13:52 87 03/27/23 13:30 18 03/27/23 13:30 18 03/27/23 13:25 75 03/27/23 13:25 121/75 03/27/23 11:57 73 03/27/23 11:57 106/63 03/27/23 11:30 16 03/27/23 11:30 16 03/27/23 10:45 18 03/27/23 10:45 36.7 C 18 03/27/23 10:45 77 03/27/23 10:45 101/63 03/27/23 09:48 81 03/27/23 09:48 98/58 L Coding Level of Care Code None
--- NOTE | 2023-03-27 23:23 | Delivery Summary ---
Vaginal Delivery Summary Date of Service March 27, 2023 Vaginal Delivery Summary and 3rd Degree LAC Vaginal Delivery Summary: Pre-delivery diagnoses: 37yo @ 39 2/, IOL for polyhydramnios, AMA, GBS+ Post-delivery diagnoses: same Procedure: spontaneous vaginal delivery, repair of partial 3rd degree laceration Surgeon: Norma Gregory DO Complications: none Findings: Viable male . Apgars: 8/9 . Weight pending, please see nursery records. Estimated blood loss: 300ml Description of delivery: The patient progressed to complete with epidural anesthesia. She then began to push. She spontaneously vaginally delivered a viable from the cephalic presentation. The head delivered in KOBY position. The anterior shoulder delivered, followed by the posterior shoulder, followed by the body. No nuchal cord. The baby was placed on mother's abdomen and a spontaneous cry was heard. Delayed cord clamping was employed, and the cord was doubly clamped and cut. Cord blood was obtained. The placenta was delivered spontaneously intact with a 3-vessel cord. The uterus and vagina were swept of clots and debris. IV pitocin was given. The uterus became firm. The cervix, vagina, and perineum were inspected. A partial 3rd degree perineal laceration was noted - the anal sphincter muscle was intact, however the muscle capsule was - this was reapproximated with 3-0 Chromic in [id number] sutures. The remaining laceration was repaired with 3-0 Vicryl in standard fashion. Red rubber catheter was placed in the bladder for urethral location, and a [id number] stitch was used to reapproximate a small right periurethral bleeding laceration. Rectal exam showed no suture or laceration in rectum. Excellent hemostasis was observed. The mother and baby are recovering in stable and good condition in the room. Sponge, needle and instrument counts were correct x 2. Norma Gregory DO [facility] Vaginal Delivery Charge Vaginal Delivery Codes: 84007 global code for the antepartum, delivery, and post- Delivery Type Details: and 3rd Degree LAC
[2023-03-28] MEDS ORDERED: bisacodyL 10 MG SUPP PR PRN (01:01)
[2023-03-28] MEDS ORDERED: OXYTOCIN 30 UNITS/NSS 30 UNITS/500 ML BAG IV PRN (01:01)
[2023-03-28] MEDS ORDERED: HYDROCORTISONE ACETATE 25 MG SUPP PR PRN (01:01)
[2023-03-28] MEDS ORDERED: oxyCODONE/ACETAMINOPHEN 5mg/325mg TAB PO PRN (01:01)
[2023-03-28] MEDS: ACETAMINOPHEN 325 MG TAB PO PRN (01:53)
[2023-03-28] MEDS: IBUPROFEN 600 MG TAB PO PRN (01:53)
[2023-03-28] MEDS: BENZOCAINE 20% SPRY 85 APPLN/85 GM CAN EXT PRN (02:03)
[2023-03-28] MEDS ORDERED: SODIUM CHLORIDE 0.9% 250 ML IV PRN (02:04)
[2023-03-28] MEDS: DIPHTHER/TETAN/PERTUS Vaccine (Tdap, Adol/Adult) 0.5mL IM ONE (02:06)
--- NOTE | 2023-03-28 07:56 | Obstetrical Progress Note ---
Date of Service March 28, 2023 Assessment & Plan (1) Encounter for care after hospital delivery: Plan continue encouraging ambulation continue pain management as needed Admission and Anticipated Discharge Date Admission Date: March 27, 2023 Supervising Physician Co-Signing Physician Notes Resident Physician Supervision Note: I interviewed and examined the patient. Discussed with med student and agree with findings and plan as documented in the note. Any exceptions or clarifications are listed here: See progress note. Documented By: Norma Gregory, Subjective 37yo now s/p spontaneous vaginal delivery last night at 39 2/7, AMA, GBS+, and polyhydramnios with a repaired partial 3rd during delivery ambulating well voiding tolerating diet breast feeding well pain well controlled minimal lochia no fever chills nasuea vomiting headache or shortness of breath Review of Systems Review of Systems: as per hpi Physical Exam Physical Exam: deferred dt Cardiovascular: regular rate and rhythm, no edema Results & Data Vital Signs (Past 12 Hours) Vital Signs Temp Pulse Pulse Resp BP BP Pulse Ox 03/28/23 02:00 03/28/23 02:00 36.5 C 98 H 18 117/74 98 03/28/23 01:21 74 105/59 L 03/28/23 01:20 36.6 C 20 03/28/23 01:06 84 103/57 L 03/28/23 00:51 88 103/57 L 03/28/23 00:50 18 03/28/23 00:36 73 103/57 L 03/28/23 00:21 80 104/55 L 03/28/23 00:20 18 03/28/23 00:06 74 102/57 L 03/28/23 00:05 20 03/27/23 23:51 75 03/27/23 23:51 104/55 L 03/27/23 23:50 18 03/27/23 23:36 77 03/27/23 23:36 110/55 L 03/27/23 23:35 20 03/27/23 23:21 80 03/27/23 23:21 106/58 L 03/27/23 23:20 18 03/27/23 23:06 74 03/27/23 23:06 103/53 L 03/27/23 23:02 100 03/27/23 23:02 77 03/27/23 22:57 100 03/27/23 22:57 96 H 03/27/23 22:54 86 L 03/27/23 22:54 84 03/27/23 22:52 100 03/27/23 22:52 90 03/27/23 22:51 90 03/27/23 22:51 109/65 03/27/23 22:47 100 03/27/23 22:47 73 03/27/23 22:42 99 03/27/23 22:42 84 03/27/23 22:37 99 03/27/23 22:37 69 03/27/23 22:36 60 03/27/23 22:36 103/60 03/27/23 22:32 100 03/27/23 22:32 64 03/27/23 22:30 18 03/27/23 22:30 18 03/27/23 22:27 100 03/27/23 22:27 61 03/27/23 22:22 95 03/27/23 22:22 69 03/27/23 22:21 65 03/27/23 22:21 98/61 L 03/27/23 22:17 100 03/27/23 22:17 67 03/27/23 22:12 100 03/27/23 22:12 67 03/27/23 22:09 86 L 03/27/23 22:09 70 03/27/23 22:07 100 03/27/23 22:07 56 L 03/27/23 22:06 56 L 03/27/23 22:06 106/63 03/27/23 22:02 100 03/27/23 22:02 61 03/27/23 22:00 18 03/27/23 22:00 18 03/27/23 21:57 100 03/27/23 21:57 73 03/27/23 21:52 100 03/27/23 21:52 67 03/27/23 21:51 70 03/27/23 21:51 101/56 L 03/27/23 21:47 100 03/27/23 21:47 64 03/27/23 21:42 100 03/27/23 21:42 66 03/27/23 21:37 100 03/27/23 21:37 67 03/27/23 21:36 64 03/27/23 21:36 97/54 L 03/27/23 21:32 100 03/27/23 21:32 61 03/27/23 21:30 18 03/27/23 21:30 18 03/27/23 21:27 100 03/27/23 21:27 65 03/27/23 21:23 65 03/27/23 21:23 89/54 L 03/27/23 21:22 99 03/27/23 21:22 64 03/27/23 21:17 100 03/27/23 21:17 63 03/27/23 21:12 100 03/27/23 21:12 74 03/27/23 21:07 100 03/27/23 21:07 71 03/27/23 21:06 78 03/27/23 21:06 92/54 L 03/27/23 21:05 37.0 C 03/27/23 21:02 100 03/27/23 21:02 74 03/27/23 21:00 18 03/27/23 21:00 18 03/27/23 20:57 100 03/27/23 20:57 70 03/27/23 20:52 100 03/27/23 20:52 65 03/27/23 20:51 70 03/27/23 20:51 98/58 L 03/27/23 20:47 100 03/27/23 20:47 61 03/27/23 20:42 100 03/27/23 20:42 61 03/27/23 20:37 100 03/27/23 20:37 62 03/27/23 20:36 76 03/27/23 20:36 102/62 03/27/23 20:32 100 03/27/23 20:32 60 03/27/23 20:30 18 03/27/23 20:30 18 03/27/23 20:27 100 03/27/23 20:27 61 03/27/23 20:22 100 03/27/23 20:22 63 03/27/23 20:21 63 03/27/23 20:21 100/57 L 03/27/23 20:17 100 03/27/23 20:17 75 03/27/23 20:12 96 03/27/23 20:12 69 03/27/23 20:10 87 L 03/27/23 20:10 78 03/27/23 20:07 100 03/27/23 20:07 68 03/27/23 20:07 95/53 L 03/27/23 20:02 100 03/27/23 20:02 71 03/27/23 20:00 20 03/27/23 20:00 20 03/27/23 19:57 98 03/27/23 19:57 75 03/27/23 19:52 100 03/27/23 19:52 74 03/27/23 19:51 66 03/27/23 19:51 101/54 L 03/27/23 19:47 99 03/27/23 19:47 67 03/27/23 19:42 100 03/27/23 19:42 71 03/27/23 19:37 100 03/27/23 19:37 68 03/27/23 19:36 78 03/27/23 19:36 93/54 L 03/27/23 19:32 100 03/27/23 19:32 66 03/27/23 19:30 18 03/27/23 19:30 18 03/27/23 19:27 100 03/27/23 19:27 67 03/27/23 19:22 100 03/27/23 19:22 66 03/27/23 19:22 68 03/27/23 19:22 90/51 L 03/27/23 19:17 100 03/27/23 19:17 65 03/27/23 19:12 100 03/27/23 19:12 69 03/27/23 19:07 95 03/27/23 19:07 68 03/27/23 19:07 69 03/27/23 19:07 101/61 03/27/23 19:04 36.5 C 18 03/27/23 19:04 18 03/27/23 19:02 91 03/27/23 19:02 67 03/27/23 19:00 16 03/27/23 19:00 16 03/27/23 18:57 100 03/27/23 18:57 67 03/27/23 18:52 100 03/27/23 18:52 66 03/27/23 18:52 67 03/27/23 18:52 98/51 L 03/27/23 18:47 100 03/27/23 18:47 62 03/27/23 18:42 100 02/13/24 18:42 64 03/27/23 18:41 65 03/27/23 18:41 91/55 L 03/27/23 18:37 96 03/27/23 18:37 64 03/27/23 18:37 65 03/27/23 18:37 90/52 L 03/27/23 18:32 100 03/27/23 18:32 68 03/27/23 18:30 18 03/27/23 18:30 36.6 C 18 03/27/23 18:27 100 03/27/23 18:27 60 O2 Del Method 03/28/23 02:00 Room Air 03/28/23 02:00 Room Air 03/28/23 01:21 03/28/23 01:20 03/28/23 01:06 03/28/23 00:51 03/28/23 00:50 03/28/23 00:36 03/28/23 00:21 03/28/23 00:20 03/28/23 00:06 03/28/23 00:05 03/27/23 23:51 03/27/23 23:51 03/27/23 23:50 03/27/23 23:36 03/27/23 23:36 03/27/23 23:35 03/27/23 23:21 03/27/23 23:21 03/27/23 23:20 03/27/23 23:06 03/27/23 23:06 03/27/23 23:02 03/27/23 23:02 03/27/23 22:57 03/27/23 22:57 03/27/23 22:54 03/27/23 22:54 03/27/23 22:52 03/27/23 22:52 03/27/23 22:51 03/27/23 22:51 03/27/23 22:47 03/27/23 22:47 03/27/23 22:42 03/27/23 22:42 03/27/23 22:37 03/27/23 22:37 03/27/23 22:36 03/27/23 22:36 03/27/23 22:32 03/27/23 22:32 03/27/23 22:30 03/27/23 22:30 03/27/23 22:27 03/27/23 22:27 03/27/23 22:22 03/27/23 22:22 03/27/23 22:21 03/27/23 22:21 03/27/23 22:17 03/27/23 22:17 03/27/23 22:12 03/27/23 22:12 03/27/23 22:09 03/27/23 22:09 03/27/23 22:07 03/27/23 22:07 03/27/23 22:06 03/27/23 22:06 03/27/23 22:02 03/27/23 22:02 03/27/23 22:00 03/27/23 22:00 03/27/23 21:57 03/27/23 21:57 03/27/23 21:52 03/27/23 21:52 03/27/23 21:51 03/27/23 21:51 03/27/23 21:47 03/27/23 21:47 03/27/23 21:42 03/27/23 21:42 03/27/23 21:37 03/27/23 21:37 03/27/23 21:36 03/27/23 21:36 03/27/23 21:32 03/27/23 21:32 03/27/23 21:30 03/27/23 21:30 03/27/23 21:27 03/27/23 21:27 03/27/23 21:23 03/27/23 21:23 03/27/23 21:22 03/27/23 21:22 03/27/23 21:17 03/27/23 21:17 03/27/23 21:12 03/27/23 21:12 03/27/23 21:07 03/27/23 21:07 03/27/23 21:06 03/27/23 21:06 03/27/23 21:05 03/27/23 21:02 03/27/23 21:02 03/27/23 21:00 03/27/23 21:00 03/27/23 20:57 03/27/23 20:57 03/27/23 20:52 03/27/23 20:52 03/27/23 20:51 03/27/23 20:51 03/27/23 20:47 03/27/23 20:47 03/27/23 20:42 03/27/23 20:42 03/27/23 20:37 03/27/23 20:37 03/27/23 20:36 03/27/23 20:36 03/27/23 20:32 03/27/23 20:32 03/27/23 20:30 03/27/23 20:30 03/27/23 20:27 03/27/23 20:27 03/27/23 20:22 03/27/23 20:22 03/27/23 20:21 03/27/23 20:21 03/27/23 20:17 03/27/23 20:17 03/27/23 20:12 03/27/23 20:12 03/27/23 20:10 03/27/23 20:10 03/27/23 20:07 03/27/23 20:07 03/27/23 20:07 03/27/23 20:02 03/27/23 20:02 03/27/23 20:00 03/27/23 20:00 03/27/23 19:57 03/27/23 19:57 03/27/23 19:52 03/27/23 19:52 03/27/23 19:51 03/27/23 19:51 03/27/23 19:47 03/27/23 19:47 03/27/23 19:42 03/27/23 19:42 03/27/23 19:37 03/27/23 19:37 03/27/23 19:36 03/27/23 19:36 03/27/23 19:32 03/27/23 19:32 03/27/23 19:30 03/27/23 19:30 03/27/23 19:27 03/27/23 19:27 03/27/23 19:22 03/27/23 19:22 03/27/23 19:22 03/27/23 19:22 03/27/23 19:17 03/27/23 19:17 03/27/23 19:12 03/27/23 19:12 03/27/23 19:07 03/27/23 19:07 03/27/23 19:07 03/27/23 19:07 03/27/23 19:04 03/27/23 19:04 03/27/23 19:02 03/27/23 19:02 03/27/23 19:00 03/27/23 19:00 03/27/23 18:57 03/27/23 18:57 03/27/23 18:52 03/27/23 18:52 03/27/23 18:52 03/27/23 18:52 03/27/23 18:47 03/27/23 18:47 03/27/23 18:42 03/27/23 18:42 03/27/23 18:41 03/27/23 18:41 03/27/23 18:37 03/27/23 18:37 03/27/23 18:37 03/27/23 18:37 03/27/23 18:32 03/27/23 18:32 03/27/23 18:30 03/27/23 18:30 03/27/23 18:27 03/27/23 18:27
--- NOTE | 2023-03-28 08:07 | Obstetrical Progress Note ---
Date of Service March 28, 2023 Assessment & Plan (1) Encounter for care after hospital delivery: Plan 37yo now s/p spontaneous vaginal delivery day 1 continue encouraging ambulation continue pain management as needed Hgb reviewed V/S reviewed Encourage breast feeding Admission and Anticipated Discharge Date Admission Date: March 27, 2023 Supervising Physician Co-Signing Physician Notes Resident Physician Supervision Note: I was present with Dr. Bhavik Hernandez during the history and exam. I discussed the case with the resident and agree with the findings and plan as documented in the note. Any exceptions or clarifications are listed here: PPD#1 doing well, anticipate DC home tomorrow. Documented By: Norma Gregory, DO Subjective 37yo now s/p spontaneous vaginal delivery last night at 39 2/7, AMA, GBS+, and polyhydramnios with a repaired partial 3rd during delivery ambulating well voiding tolerating diet breast feeding well pain well controlled minimal lochia no fever chills nasuea vomiting headache or shortness of breath Review of Systems Review of Systems: All systems reviewed & are unremarkable except as noted in HPI & below Physical Exam Physical Exam: General: patient resting comfortably, NAD, non-toxic in appearance, AA&O x 4, answers questions appropriately. Skin: warm, dry, intact Heart: +S1/S2, regular, no m/r/g Lungs: equal air entry bilaterally, no rales/rhonchi/wheezes Abd: +BS, soft, NT/ND, uterine fundus firm at umbilicus Ext: warm, no clubbing/cyanosis or edema, Tristian's neg. Results & Data Vital Signs (Past 12 Hours) Vital Signs Temp Pulse Pulse Resp BP BP Pulse Ox 03/28/23 06:00 36.6 C 74 18 101/65 98 03/28/23 02:00 03/28/23 02:00 36.5 C 98 H 18 117/74 98 03/28/23 01:21 74 105/59 L 03/28/23 01:20 36.6 C 20 03/28/23 01:06 84 103/57 L 03/28/23 00:51 88 103/57 L 03/28/23 00:50 18 03/28/23 00:36 73 103/57 L 03/28/23 00:21 80 104/55 L 03/28/23 00:20 18 03/28/23 00:06 74 102/57 L 03/28/23 00:05 20 03/27/23 23:51 75 03/27/23 23:51 104/55 L 03/27/23 23:50 18 03/27/23 23:36 77 03/27/23 23:36 110/55 L 03/27/23 23:35 20 03/27/23 23:21 80 03/27/23 23:21 106/58 L 03/27/23 23:20 18 03/27/23 23:06 74 03/27/23 23:06 103/53 L 03/27/23 23:02 100 03/27/23 23:02 77 03/27/23 22:57 100 03/27/23 22:57 96 H 03/27/23 22:54 86 L 03/27/23 22:54 84 03/27/23 22:52 100 03/27/23 22:52 90 03/27/23 22:51 90 03/27/23 22:51 109/65 03/27/23 22:47 100 03/27/23 22:47 73 03/27/23 22:42 99 03/27/23 22:42 84 03/27/23 22:37 99 03/27/23 22:37 69 03/27/23 22:36 60 03/27/23 22:36 103/60 03/27/23 22:32 100 03/27/23 22:32 64 03/27/23 22:30 18 03/27/23 22:30 18 03/27/23 22:27 100 03/27/23 22:27 61 03/27/23 22:22 95 03/27/23 22:22 69 03/27/23 22:21 65 03/27/23 22:21 98/61 L 03/27/23 22:17 100 03/27/23 22:17 67 03/27/23 22:12 100 03/27/23 22:12 67 03/27/23 22:09 86 L 03/27/23 22:09 70 03/27/23 22:07 100 03/27/23 22:07 56 L 03/27/23 22:06 56 L 03/27/23 22:06 106/63 03/27/23 22:02 100 03/27/23 22:02 61 03/27/23 22:00 18 03/27/23 22:00 18 03/27/23 21:57 100 03/27/23 21:57 73 03/27/23 21:52 100 03/27/23 21:52 67 03/27/23 21:51 70 03/27/23 21:51 101/56 L 03/27/23 21:47 100 03/27/23 21:47 64 03/27/23 21:42 100 03/27/23 21:42 66 03/27/23 21:37 100 03/27/23 21:37 67 03/27/23 21:36 64 03/27/23 21:36 97/54 L 03/27/23 21:32 100 03/27/23 21:32 61 03/27/23 21:30 18 03/27/23 21:30 18 03/27/23 21:27 100 03/27/23 21:27 65 03/27/23 21:23 65 03/27/23 21:23 89/54 L 03/27/23 21:22 99 03/27/23 21:22 64 03/27/23 21:17 100 03/27/23 21:17 63 03/27/23 21:12 100 03/27/23 21:12 74 03/27/23 21:07 100 03/27/23 21:07 71 03/27/23 21:06 78 03/27/23 21:06 92/54 L 03/27/23 21:05 37.0 C 03/27/23 21:02 100 03/27/23 21:02 74 03/27/23 21:00 18 03/27/23 21:00 18 03/27/23 20:57 100 03/27/23 20:57 70 03/27/23 20:52 100 03/27/23 20:52 65 03/27/23 20:51 70 03/27/23 20:51 98/58 L 03/27/23 20:47 100 03/27/23 20:47 61 03/27/23 20:42 100 03/27/23 20:42 61 03/27/23 20:37 100 03/27/23 20:37 62 03/27/23 20:36 76 03/27/23 20:36 102/62 03/27/23 20:32 100 03/27/23 20:32 60 03/27/23 20:30 18 03/27/23 20:30 18 03/27/23 20:27 100 03/27/23 20:27 61 03/27/23 20:22 100 03/27/23 20:22 63 03/27/23 20:21 63 03/27/23 20:21 100/57 L 03/27/23 20:17 100 03/27/23 20:17 75 03/27/23 20:12 96 03/27/23 20:12 69 03/27/23 20:10 87 L 03/27/23 20:10 78 03/27/23 20:07 100 03/27/23 20:07 68 03/27/23 20:07 95/53 L O2 Del Method 03/28/23 06:00 Room Air 03/28/23 02:00 Room Air 03/28/23 02:00 Room Air 03/28/23 01:21 03/28/23 01:20 03/28/23 01:06 03/28/23 00:51 03/28/23 00:50 03/28/23 00:36 03/28/23 00:21 03/28/23 00:20 03/28/23 00:06 03/28/23 00:05 03/27/23 23:51 03/27/23 23:51 03/27/23 23:50 03/27/23 23:36 03/27/23 23:36 03/27/23 23:35 03/27/23 23:21 03/27/23 23:21 03/27/23 23:20 03/27/23 23:06 03/27/23 23:06 03/27/23 23:02 03/27/23 23:02 03/27/23 22:57 03/27/23 22:57 03/27/23 22:54 03/27/23 22:54 03/27/23 22:52 03/27/23 22:52 03/27/23 22:51 03/27/23 22:51 03/27/23 22:47 03/27/23 22:47 03/27/23 22:42 03/27/23 22:42 03/27/23 22:37 03/27/23 22:37 03/27/23 22:36 03/27/23 22:36 03/27/23 22:32 03/27/23 22:32 03/27/23 22:30 03/27/23 22:30 03/27/23 22:27 03/27/23 22:27 03/27/23 22:22 03/27/23 22:22 03/27/23 22:21 03/27/23 22:21 03/27/23 22:17 03/27/23 22:17 03/27/23 22:12 03/27/23 22:12 03/27/23 22:09 03/27/23 22:09 03/27/23 22:07 03/27/23 22:07 03/27/23 22:06 03/27/23 22:06 03/27/23 22:02 03/27/23 22:02 03/27/23 22:00 03/27/23 22:00 03/27/23 21:57 03/27/23 21:57 03/27/23 21:52 03/27/23 21:52 03/27/23 21:51 03/27/23 21:51 03/27/23 21:47 03/27/23 21:47 03/27/23 21:42 03/27/23 21:42 03/27/23 21:37 03/27/23 21:37 03/27/23 21:36 03/27/23 21:36 03/27/23 21:32 03/27/23 21:32 03/27/23 21:30 03/27/23 21:30 03/27/23 21:27 03/27/23 21:27 03/27/23 21:23 03/27/23 21:23 03/27/23 21:22 03/27/23 21:22 03/27/23 21:17 03/27/23 21:17 03/27/23 21:12 03/27/23 21:12 03/27/23 21:07 03/27/23 21:07 03/27/23 21:06 03/27/23 21:06 03/27/23 21:05 03/27/23 21:02 03/27/23 21:02 03/27/23 21:00 03/27/23 21:00 03/27/23 20:57 03/27/23 20:57 03/27/23 20:52 03/27/23 20:52 03/27/23 20:51 03/27/23 20:51 03/27/23 20:47 03/27/23 20:47 03/27/23 20:42 03/27/23 20:42 03/27/23 20:37 03/27/23 20:37 03/27/23 20:36 03/27/23 20:36 03/27/23 20:32 03/27/23 20:32 03/27/23 20:30 03/27/23 20:30 03/27/23 20:27 03/27/23 20:27 03/27/23 20:22 03/27/23 20:22 03/27/23 20:21 03/27/23 20:21 03/27/23 20:17 03/27/23 20:17 03/27/23 20:12 03/27/23 20:12 03/27/23 20:10 03/27/23 20:10 03/27/23 20:07 03/27/23 20:07 03/27/23 20:07 Resident Activity Tracking Resident Involvement: Resident Care Provided Care Provided: OB Delivery
[2023-03-28 08:26] LABS: Hematocrit (blood only) 27.4 % (37.0-47.0); Hemoglobin 9.2 g/dl (12.0-16.0)
[2023-03-28] MEDS: DOCUSATE SODIUM 100 MG CAP PO SCH (08:46)
[2023-03-28] MEDS: PRENATAL VITAMIN 1 TAB PO SCH (08:47)
--- NOTE | 2023-03-28 09:19 | Anesthesia Procedure Note ---
Date of Service March 28, 2023 Anesthesia Post Epidural Note Vital Signs Vital Signs: Temp Pulse Resp BP Pulse Ox O2 Del Method 36.6 C 74 18 101/65 98 Room Air 03/28/23 06:00 03/28/23 06:00 03/28/23 06:00 03/28/23 06:00 03/28/23 06:00 03/28/23 06:00 Pain Intensity Abdomen: Pain Intensity: 0 Notes Mental Status: alert / awake / arousable Nausea / Vomiting: adequately controlled Pain: adequately controlled Airway Patency, RR, SpO2: stable & adequate BP & HR: stable & adequate Hydration State: stable & adequate Neuraxial Anesthesia: was administered and sensory block is resolving Anesthetic Complications: no major complications apparent and Pt Satisfied with anesthetic care Epidural: Removed without complications and With tip intact
[2023-03-28] MEDS: bisacodyL 5 MG TABEC PO SCH (20:27)
--- NOTE | 2023-03-29 06:44 | Obstetrical Progress Note ---
Date of Service March 29, 2023 Assessment & Plan (1) Encounter for care after hospital delivery: Plan 37yo now s/p spontaneous vaginal delivery day 2 continue encouraging ambulation continue pain management as needed Hgb reviewed V/S reviewed Encourage breast feeding Discharge home today, instructions discussed Admission and Anticipated Discharge Date Admission Date: March 27, 2023 Supervising Physician Co-Signing Physician Notes Patient seen with resident and agree with the above findings and plan. Day 2 status post vaginal delivery. Stable for discharge. Subjective 37yo now s/p spontaneous vaginal delivery day 2 ambulating well voiding tolerating diet breast feeding well pain well controlled minimal lochia no fever chills nasuea vomiting headache or shortness of breath Review of Systems Review of Systems: All systems reviewed & are unremarkable except as noted in HPI & below Physical Exam Physical Exam: General: patient resting comfortably, NAD, non-toxic in appearance, AA&O x 4, answers questions appropriately. Skin: warm, dry, intact Heart: +S1/S2, regular, no m/r/g Lungs: equal air entry bilaterally, no rales/rhonchi/wheezes Abd: +BS, soft, NT/ND, uterine fundus firm at umbilicus Ext: warm, no clubbing/cyanosis or edema, Tristian's neg. Results & Data Vital Signs (Past 12 Hours) Vital Signs Temp Pulse Resp BP Pulse Ox O2 Del Method 03/28/23 23:05 36.4 C L 70 16 111/68 97 Room Air 03/28/23 20:15 36.4 C L 78 17 104/57 L 96 Room Air Resident Activity Tracking Resident Involvement: Resident Care Provided Care Provided: OB Delivery
== END 2023-03-29 12:40 | disposition home or self-care (01) | DRG 768 ==
LOC: 4S1 07:40 → 4E2 03-28 02:07